=== PATIENT | male | born 1945 | race African-American/Black ===

== ENCOUNTER 2016-03-27 00:13 | Inpatient (IN) | payer SELFPAY ==
[~2016-03-27] VITALS: Ht 180.3 cm; Wt 93.2 kg
[2016-03-27 01:12] LABS: Basophils # (auto) 0.2 uL; Basophils % (auto) 1.3 % (0.0-2.0); DEFINITIVE VIEW TRANSMISSION; Eosinophils # (auto) 0 uL; Hemoglobin 16.3 g/dL (13.5-17.5); Lymphocytes % (auto) 8.2 % (10.0-50.0); Mean Corpuscular Hemoglobin 30.5 pg (28.0-32.0); Mean Corpuscular Hgb Conc. 31.3 g/dL (32.0-36.0); Mean Corpuscular Volume 97.5 fL (80.0-100.0); Mean Platelet Volume 11.8 fL (7.4-10.4); Monocytes # (auto) 0.3 uL; Monocytes % (auto) 2.7 % (0.0-12.0); Neutrophils # (auto) 10.6 uL; Neutrophils % (auto) 87.8 % (37.0-80.0); Platelet Count (auto) 190 10^3/uL (140-450); Red Cell Distribution Width 13.4 % (11.6-16.0); White Blood Cell 12.1 10^3/uL (4.4-10.8)
[2016-03-27 01:27] LABS: INR 1.04 (0.9-1.15); Partial Thromboplastin Time 23.1 sec (22.64-33.71); Prothrombin Time 10.7 sec (9.37-12.3)
[2016-03-27 01:31] LABS: Albumin 4.2 g/dL (3.4-5.0); Calcium 10.9 mg/dL (8.5-10.1)
[2016-03-27 01:34] LABS: BUN/Creatinine Ratio 21.6; Total Protein 8.6 g/dL (6.4-8.2)
[2016-03-27] MEDS ORDERED: InsuLIN R (HUMAN) 100 UNITS in SODIUM CHL 0.9% 99 ML IV SCH ×2 (01:41→05:21)
[2016-03-27] MEDS ORDERED: DEXTROSE (50%) 50ML SYRG IV PRN ×2 (01:45→22:30)
[2016-03-27] MEDS ORDERED: SODIUM BICARBONATE 8.4% INJ 50ML SYRINGE IV ONE (01:45)
[2016-03-27] MEDS ORDERED: SODIUM CHLORIDE 0.9% 1,000 ML IV ONE (01:45)
[2016-03-27] MEDS ORDERED: ALBUTEROL SULF 2.5 MG/0.5ML(0.5%) NEB SOLN NEB ONE (01:45)
[2016-03-27] MEDS ORDERED: ONDANSETRON HCL 4 MG/2 ML VIAL IV ONE (02:30)
[2016-03-27] MEDS ORDERED: MORPHINE SULFATE 4 MG/ML SYRG IV ONE (02:30)
[2016-03-27 02:39] LABS: Urine Bilirubin Negative (Negative); Urine Blood TRACE /uL (Negative); Urine Color Yellow (Yellow); Urine Granular Cast FEW /lpf (0); Urine Hyaline Cast FEW /lpf (0 - 2); Urine Nitrite Negative (Negative); Urine RBC 1 /hpf (0 - 3); Urine Urobilinogen Normal (Negative)
[2016-03-27 02:41] LABS: Urine Glucose 4+ mg/dL (Normal); Urine Ketone 1+ (Negative)
[2016-03-27] MEDS: ACCU-CHEK COMFORT CURVE STRIP VI SCH ×21 (02:44→22:07)
[2016-03-27] MEDS: SODIUM CHLORIDE 0.9% 1,000 ML IV SCH ×4 (03:10→14:21)
[2016-03-27 03:29] LABS: BUN/Creatinine Ratio 24.9; Potassium 5.1 mmol/L (3.5-5.1)
[2016-03-27] MEDS ORDERED: MORPHINE SULF INJ 2 MG/ML SYRINGE 1ML IV PRN (05:30)
[2016-03-27] MEDS ORDERED: ACETAMINOPHEN 325 MG TAB PO PRN (05:30)
[2016-03-27] MEDS ORDERED: HYDROcodone-ACET 5/325MG TAB PO PRN (05:30)
[2016-03-27] MEDS ORDERED: ONDANSETRON HCL 4 MG/2 ML VIAL IV PRN (05:30)
[2016-03-27] MEDS ORDERED: cloNIDine HCL 0.1 MG TAB PO PRN (05:30)
[2016-03-27] MEDS ORDERED: NITROGLYCERIN 0.4 MG SL TAB SL PRN (05:30)
[2016-03-27] MEDS ORDERED: SODIUM CHLORIDE 0.9% 1,000 ML IV SCH (05:41)
[2016-03-27 07:49] LABS: BUN/Creatinine Ratio 25.5; Calcium 9.6 mg/dL (8.5-10.1); Potassium 5.4 mmol/L (3.5-5.1)
[2016-03-27] MEDS: ENOXAPARIN SOD 30 MG/0.3 ML SYRINGE SC SCH (10:20)
[2016-03-27] MEDS: FAMOTIDINE 20 MG TAB PO SCH ×2 (10:20→22:07)
[2016-03-27 15:16] LABS: BUN/Creatinine Ratio 25.8; Calcium 9.5 mg/dL (8.5-10.1); Potassium 4.3 mmol/L (3.5-5.1)
[2016-03-27 18:20] LABS: BUN/Creatinine Ratio 26.7; Calcium 8.8 mg/dL (8.5-10.1); Potassium 4.3 mmol/L (3.5-5.1)
[2016-03-27 20:07] LABS: BUN/Creatinine Ratio 26.7; Potassium 4.2 mmol/L (3.5-5.1)
[2016-03-27] MEDS: SOD CHL 0.45% 1,000 ML IV SCH (20:34)
[2016-03-28] MEDS: InsuLIN REG 1unit/0.01ml Soln (100units/ml) SC SCH ×6 (00:12→20:35)
[2016-03-28] MEDS: ACCU-CHEK COMFORT CURVE STRIP VI SCH ×6 (00:13→20:35)
[2016-03-28 05:28] LABS: Basophils # (auto) 0 uL; Eosinophils # (auto) 0.1 uL; Eosinophils % (auto) 0.6 % (0.0-7.0); Hematocrit 45.7 % (41.0-53.0); Hemoglobin 14.8 g/dL (13.5-17.5); Lymphocytes # (auto) 1.5 uL; Lymphocytes % (auto) 12.3 % (10.0-50.0); Mean Corpuscular Hemoglobin 30.8 pg (28.0-32.0); Mean Corpuscular Hgb Conc. 32.3 g/dL (32.0-36.0); Mean Corpuscular Volume 95.4 fL (80.0-100.0); Mean Platelet Volume 11.4 fL (7.4-10.4); Monocytes # (auto) 0.7 uL; Monocytes % (auto) 5.6 % (0.0-12.0); Neutrophils # (auto) 10.2 uL; Neutrophils % (auto) 81.5 % (37.0-80.0); Platelet Count (auto) 140 10^3/uL (140-450); Red Cell Distribution Width 14.6 % (11.6-16.0); White Blood Cell 12.5 10^3/uL (4.4-10.8)
[2016-03-28] MEDS: SOD CHL 0.45% 1,000 ML IV SCH (06:11)
[2016-03-28 06:14] LABS: Albumin 3.1 g/dL (3.4-5.0); Magnesium 2.9 mg/dL (1.6-2.6); Potassium 5.1 mmol/L (3.5-5.1)
[2016-03-28 06:16] LABS: BUN/Creatinine Ratio 28.2
[2016-03-28 06:19] LABS: Bilirubin, Total 0.9 mg/dL (0.2-1.0); Total Protein 6.8 g/dL (6.4-8.2)
[2016-03-28 09:00] VITALS: BP 144/88
[2016-03-28] MEDS: FAMOTIDINE 20 MG TAB PO SCH ×2 (09:46→22:54)
[2016-03-28] MEDS: ENOXAPARIN SOD 30 MG/0.3 ML SYRINGE SC SCH (09:46)
[2016-03-28 10:26] LABS: Urine Bilirubin Negative (Negative); Urine Blood 3+ /uL (Negative); Urine Color Yellow (Yellow); Urine Glucose 3+ mg/dL (Normal); Urine Ketone 1+ (Negative); Urine Nitrite Negative (Negative); Urine RBC 68 /hpf (0 - 3); Urine Squamous Epithelial Cell FEW /hpf (<5); Urine Urobilinogen Normal (Negative); Urine pH 5.5 (5.0-8.0)
[2016-03-28 11:22] LABS: INR 0.99 (0.9-1.15); Prothrombin Time 10.2 sec (9.37-12.3)
[2016-03-28 13:00] VITALS: BP 155/75
[2016-03-28] MEDS ORDERED: INFLUENZA QUAD 2016-2017 0.5 ML SYRG IM ONE (14:45)
[2016-03-28] MEDS ORDERED: PNEUMOCOCCAL VACC POLYS 25 MCG/0.5 ML VIAL IM ONE (14:45)
[2016-03-28] MEDS: D5W 5% 1,000 ML IV SCH (15:00)
[2016-03-28] MEDS ORDERED: INSULIN DETEMIR(LEVEMIR) 1unit/0.01ml Soln (100units/ml) SC ONE (15:00)
[2016-03-28] MEDS ORDERED: POLYETHYLENE GLYCOL 17GM PWDR PO PRN (15:15)
[2016-03-28] MEDS: DOCUSATE SOD 100 MG CAP PO SCH ×2 (16:19→22:54)
[2016-03-28] MEDS: cefTRIAXone 1GM/50ML D5W 50 ML IV SCH (16:24)
[2016-03-28 17:14] VITALS: BP 156/121
[2016-03-28 22:00] VITALS: BP 145/68
[2016-03-28] MEDS: SENNA 8.6 MG TAB PO SCH (22:54)
[2016-03-29] MEDS: ACCU-CHEK COMFORT CURVE STRIP VI SCH ×6 (00:12→20:00)
[2016-03-29] MEDS: InsuLIN REG 1unit/0.01ml Soln (100units/ml) SC SCH ×7 (00:13→23:50)
[2016-03-29 05:30] VITALS: BP 127/70
[2016-03-29 06:17] LABS: Basophils # (auto) 0 uL; Basophils % (auto) 0.5 % (0.0-2.0); Eosinophils # (auto) 0.1 uL; Eosinophils % (auto) 1.5 % (0.0-7.0); Hemoglobin 13.2 g/dL (13.5-17.5); Mean Corpuscular Hemoglobin 30.5 pg (28.0-32.0); Mean Corpuscular Hgb Conc. 32.2 g/dL (32.0-36.0); Mean Corpuscular Volume 94.5 fL (80.0-100.0); Mean Platelet Volume 11.9 fL (7.4-10.4); Monocytes # (auto) 0.7 uL; Neutrophils # (auto) 5.7 uL; Platelet Count (auto) 145 10^3/uL (140-450); Red Cell Distribution Width 14.6 % (11.6-16.0); White Blood Cell 8.5 10^3/uL (4.4-10.8)
[2016-03-29 06:35] LABS: INR 1.01 (0.9-1.15); Prothrombin Time 10.4 sec (9.37-12.3)
[2016-03-29 06:38] LABS: Magnesium 2.7 mg/dL (1.6-2.6)
[2016-03-29 06:40] LABS: BUN/Creatinine Ratio 21.7
[2016-03-29] MEDS: INSULIN DETEMIR(LEVEMIR) 1unit/0.01ml Soln (100units/ml) SC SCH (07:11)
[2016-03-29] MEDS: cefTRIAXone 1GM/50ML D5W 50 ML IV SCH (08:23)
[2016-03-29] MEDS: D5W 5% 1,000 ML IV SCH ×2 (10:59→15:59)
[2016-03-29] MEDS: ENOXAPARIN SOD 30 MG/0.3 ML SYRINGE SC SCH (11:12)
[2016-03-29] MEDS: FAMOTIDINE 20 MG TAB PO SCH ×2 (11:12→22:19)
[2016-03-29] MEDS: DOCUSATE SOD 100 MG CAP PO SCH ×2 (11:12→22:19)
[2016-03-29 11:53] VITALS: BP 152/70
[2016-03-29 16:30] VITALS: BP 153/87
[2016-03-29 21:30] VITALS: BP 141/79
[2016-03-29] MEDS: SENNA 8.6 MG TAB PO SCH (22:19)
[2016-03-30] MEDS: InsuLIN REG 1unit/0.01ml Soln (100units/ml) SC SCH ×3 (04:05→11:38)
[2016-03-30] MEDS: ACCU-CHEK COMFORT CURVE STRIP VI SCH ×4 (04:05→11:32)
[2016-03-30 05:38] VITALS: BP 122/68
[2016-03-30] MEDS: INSULIN DETEMIR(LEVEMIR) 1unit/0.01ml Soln (100units/ml) SC SCH (06:38)
[2016-03-30 08:00] VITALS: BP 130/75
[2016-03-30 08:40] LABS: Basophils # (auto) 0 uL; Basophils % (auto) 0.3 % (0.0-2.0); Eosinophils # (auto) 0.1 uL; Eosinophils % (auto) 1.4 % (0.0-7.0); Hematocrit 39.5 % (41.0-53.0); Hemoglobin 12.6 g/dL (13.5-17.5); Lymphocytes # (auto) 1.8 uL; Lymphocytes % (auto) 24.9 % (10.0-50.0); Mean Corpuscular Hemoglobin 30.3 pg (28.0-32.0); Mean Corpuscular Volume 94.6 fL (80.0-100.0); Mean Platelet Volume 11.8 fL (7.4-10.4); Monocytes # (auto) 0.5 uL; Monocytes % (auto) 7.4 % (0.0-12.0); Neutrophils # (auto) 4.8 uL; Platelet Count (auto) 118 10^3/uL (140-450); Red Cell Distribution Width 13.9 % (11.6-16.0); White Blood Cell 7.3 10^3/uL (4.4-10.8)
[2016-03-30 08:50] LABS: Prothrombin Time 10.3 sec (9.37-12.3)
[2016-03-30 08:57] LABS: BUN/Creatinine Ratio 16.6; Calcium 9.2 mg/dL (8.5-10.1); Magnesium 2.3 mg/dL (1.6-2.6)
[2016-03-30] MEDS: D5W 5% 1,000 ML IV SCH (09:12)
[2016-03-30] MEDS: cefTRIAXone 1GM/50ML D5W 50 ML IV SCH (09:13)
[2016-03-30] MEDS: DOCUSATE SOD 100 MG CAP PO SCH (09:58)
[2016-03-30] MEDS: FAMOTIDINE 20 MG TAB PO SCH (09:58)
[2016-03-30] MEDS: ENOXAPARIN SOD 30 MG/0.3 ML SYRINGE SC SCH (09:58)
[2016-03-30 13:42] VITALS: BP_SYST 143
[2016-03-30 14:15] VITALS: BP 143/74
== END 2016-03-30 15:10 | disposition home or self-care (01) | DRG 637 ==
LOC: ER 00:18 → TELE 00:19 → TELE-WESTW 03-28 08:25
PROVIDERS: ADMIT Internal Medicine; ATTEND Internal Medicine
DX: E13.10 Other specified diabetes mellitus with ketoacidosis without coma (principal); N17.0 Acute kidney failure with tubular necrosis; E87.0 Hyperosmolality and hypernatremia; I10 Essential (primary) hypertension; E86.0 Dehydration; E87.5 Hyperkalemia; E78.5 Hyperlipidemia, unspecified; Z82.49 Family history of ischemic heart disease and other diseases of the circulatory system; Z83.3 Family history of diabetes mellitus; Z23 Encounter for immunization
CPT/HCPCS: 36415; 36600; 74000; 80048; 80053; 81001; 82010; 82570; 82805; 82962; 83036; 83735; 83930; 84100; 84156; 84295; 84300; 84443; 84484; 84550; 85025; 85610; 85730; 87040; 87081; 87086; 93005; 96361; 96374; 96375; J0696; J1815; J2405

== ENCOUNTER 2017-03-05 11:23 | Inpatient (IN) | payer MEDICAID ==
[~2017-03-05] VITALS: Ht 180.3 cm; Wt 76.1 kg
[2017-03-05 12:50] LABS: Basophils # (auto) 0.1 uL; Basophils % (auto) 0.5 % (0.0-2.0); Eosinophils # (auto) 0 uL; Hemoglobin 15.4 g/dL (13.5-17.5); Lymphocytes # (auto) 0.8 uL; Lymphocytes % (auto) 7.1 % (10.0-50.0); Mean Corpuscular Hemoglobin 31.4 pg (28.0-32.0); Mean Corpuscular Hgb Conc. 32.2 g/dL (32.0-36.0); Mean Corpuscular Volume 97.5 fL (80.0-100.0); Mean Platelet Volume 10.4 fL (6.9-10.8); Monocytes # (auto) 0.3 uL; Monocytes % (auto) 2.1 % (0.0-12.0); Neutrophils # (auto) 10.6 uL; Neutrophils % (auto) 90.3 % (37.0-80.0); Platelet Count (auto) 274 10^3/uL (140-450); Red Cell Distribution Width 14.5 % (11.8-14.3); White Blood Cell 11.7 10^3/uL (4.4-10.8)
[2017-03-05 13:05] LABS: Albumin 4.1 g/dL (3.4-5.0); Anion Gap 20 (5-15); Aspartate Aminotransferase 6 U/L (15-37); Blood Urea Nitrogen 66 mg/dL (7-18); Calcium 11.1 mg/dL (8.5-10.1); Carbon Dioxide 17 mmol/L (21-32); Chloride 96 mmol/L (98-107); Sodium 133 mmol/L (136-145)
[2017-03-05 13:07] LABS: GFR African American 26 mL/min; GFR Non-African American 21 mL/min; Total Protein 9.2 g/dL (6.4-8.2)
[2017-03-05 13:08] LABS: Urine Bilirubin Negative (Negative); Urine Blood TRACE /uL (Negative); Urine Color Yellow (Yellow); Urine Glucose 4+ mg/dL (Normal); Urine Ketone 1+ (Negative); Urine Nitrite Negative (Negative); Urine RBC 38 /hpf (0 - 3); Urine Squamous Epithelial Cell FEW /hpf (<5); Urine Urobilinogen Normal (Negative)
[2017-03-05 13:14] LABS: Alkaline Phosphatase 187 U/L (45-117)
[2017-03-05 13:19] LABS: Glucose 699 mg/dL (74-106)
[2017-03-05 13:20] LABS: BUN/Creatinine Ratio 21.2; Potassium 5.8 mmol/L (3.5-5.1)
[2017-03-05] MEDS ORDERED: SODIUM CHLORIDE 0.9% 500 ML IV ONE (13:30)
[2017-03-05] MEDS ORDERED: InsuLIN REG 1unit/0.01ml Soln (100units/ml) IV ONE (13:30)
[2017-03-05] MEDS ORDERED: SODIUM BICARBONATE 8.4 % INJ 50ML VIAL IV ONE (13:30)
[2017-03-05] MEDS ORDERED: CALCIUM GLUC 4.65meq/50ml D5AE 50 ML IV ONE (13:30)
[2017-03-05] MEDS ORDERED: DEXTROSE (50%) 50ML SYRG IV PRN (14:30)
[2017-03-05] MEDS ORDERED: NITROGLYCERIN 0.4 MG SL TAB SL PRN (14:30)
[2017-03-05] MEDS ORDERED: MORPHINE SULF INJ 2 MG/ML SYRINGE 1ML IV PRN (14:30)
[2017-03-05] MEDS ORDERED: cefTRIAXone 1GM/10ml IVPUSH 10 ML IV ONE (14:30)
[2017-03-05] MEDS ORDERED: METOPROLOL TARTRATE 50 MG TAB PO ONE (14:45)
[2017-03-05] MEDS ORDERED: ASPirin 81 mg TAB PO ONE (14:45)
[2017-03-05] MEDS ORDERED: PANTOPRAZOLE 40 MG TAB PO ONE (14:45)
[2017-03-05] MEDS: SODIUM CHLORIDE 0.9% 1,000 ML IV SCH (15:11)
[2017-03-05 15:57] LABS: B-Type Natriuretic Peptide 2.93 pg/mL (0-100)
[2017-03-05 17:03] LABS: Temperature: 23.1 C (20.0-25.0)
[2017-03-05] MEDS: ACCU-CHEK COMFORT CURVE STRIP VI SCH ×2 (17:21→21:35)
[2017-03-05] MEDS: InsuLIN REG 1unit/0.01ml Soln (100units/ml) SC SCH ×2 (17:34→21:57)
[2017-03-05 18:42] LABS: Calcium 10.2 mg/dL (8.5-10.1); Potassium 5.2 mmol/L (3.5-5.1)
[2017-03-05 20:58] LABS: Allen Test Modified; Base Excess -1.6 mmol/L (-2.0-2.0); Blood COHb 0.1 % (0.5-1.5); Blood MetHb 0.3 % (0.0-1.5); HCO3 22.5 mmol/L (22-26.0); MODE ROOM AIR; O2Hb 95.6 % (94.0-97.0); PCO2 36.6 mmHg (35.0-45.0); PCO2(T) 36.6 mmHg (35.0-45.0); PO2 86.9 mmHg (80.0-100.0); PO2(T) 86.9 mmHg (80.0-100.0); Room 0220T; Sample Type Arterial; pH 7.407 (7.350-7.450)
[2017-03-05] MEDS: METOPROLOL TARTRATE 50 MG TAB PO SCH (21:34)
[2017-03-05] MEDS: ATORVASTATIN 20 MG TAB PO SCH (21:57)
[2017-03-05] MEDS: INSULIN DETEMIR(LEVEMIR) 1unit/0.01ml Soln (100units/ml) SC SCH (21:58)
[2017-03-05] MEDS ORDERED: SENN1TAB14 PO (22:46)
[2017-03-05] MEDS ORDERED: METF-370 PO (22:46)
[2017-03-05] MEDS ORDERED: IBUP800T24 PO (22:46)
[2017-03-05] MEDS ORDERED: LEVEMIR SC (22:46)
[2017-03-05] MEDS ORDERED: LISI-646 PO (22:46)
[2017-03-05 23:26] VITALS: BP 121/75
[2017-03-06] VITALS (7 sets, daily range): BP systolic 113–140; BP diastolic 71–82
[2017-03-06] MEDS: SODIUM CHLORIDE 0.9% 1,000 ML IV SCH ×3 (01:30→20:30)
[2017-03-06 05:57] LABS: Basophils # (auto) 0.1 uL; Basophils % (auto) 0.5 % (0.0-2.0); Eosinophils # (auto) 0 uL; Eosinophils % (auto) 0.3 % (0.0-7.0); Hematocrit 45.9 % (41.0-53.0); Hemoglobin 15.1 g/dL (13.5-17.5); Lymphocytes # (auto) 1.9 uL; Lymphocytes % (auto) 13.1 % (10.0-50.0); Mean Corpuscular Hemoglobin 30.4 pg (28.0-32.0); Mean Corpuscular Hgb Conc. 32.8 g/dL (32.0-36.0); Mean Corpuscular Volume 92.6 fL (80.0-100.0); Mean Platelet Volume 10.8 fL (6.9-10.8); Monocytes # (auto) 1.5 uL; Monocytes % (auto) 10.3 % (0.0-12.0); Neutrophils % (auto) 75.8 % (37.0-80.0); Platelet Count (auto) 208 10^3/uL (140-450); White Blood Cell 14.5 10^3/uL (4.4-10.8)
[2017-03-06] MEDS: ACCU-CHEK COMFORT CURVE STRIP VI SCH ×4 (05:59→21:58)
[2017-03-06] MEDS: InsuLIN REG 1unit/0.01ml Soln (100units/ml) SC SCH ×4 (05:59→21:58)
[2017-03-06 06:20] LABS: BUN/Creatinine Ratio 29.3; Calcium 10.4 mg/dL (8.5-10.1); Potassium 4.3 mmol/L (3.5-5.1)
[2017-03-06] MEDS: INSULIN DETEMIR(LEVEMIR) 1unit/0.01ml Soln (100units/ml) SC SCH ×2 (10:00→21:59)
[2017-03-06] MEDS: METOPROLOL TARTRATE 50 MG TAB PO SCH ×2 (10:28→22:00)
[2017-03-06] MEDS: cefTRIAXone 1GM/10ml IVPUSH 10 ML IV SCH (10:28)
[2017-03-06] MEDS: ASPirin 81 mg TAB PO SCH (10:28)
[2017-03-06] MEDS: PANTOPRAZOLE 40 MG TAB PO SCH (10:28)
[2017-03-06] MEDS: ATORVASTATIN 20 MG TAB PO SCH (21:58)
[2017-03-07 05:54] VITALS: BP 131/72
[2017-03-07] MEDS: SODIUM CHLORIDE 0.9% 1,000 ML IV SCH ×2 (06:30→16:30)
[2017-03-07] MEDS: InsuLIN REG 1unit/0.01ml Soln (100units/ml) SC SCH ×4 (07:00→21:38)
[2017-03-07] MEDS: ACCU-CHEK COMFORT CURVE STRIP VI SCH ×4 (07:07→21:38)
[2017-03-07 08:30] VITALS: BP 133/75
[2017-03-07] MEDS: cefTRIAXone 1GM/10ml IVPUSH 10 ML IV SCH (09:00)
[2017-03-07] MEDS: INSULIN DETEMIR(LEVEMIR) 1unit/0.01ml Soln (100units/ml) SC SCH ×2 (10:00→21:39)
[2017-03-07] MEDS: ASPirin 81 mg TAB PO SCH (10:00)
[2017-03-07] MEDS: PANTOPRAZOLE 40 MG TAB PO SCH (12:25)
[2017-03-07] MEDS: METOPROLOL TARTRATE 50 MG TAB PO SCH ×2 (12:25→21:38)
[2017-03-07 12:30] VITALS: BP 142/84
[2017-03-07 17:22] VITALS: BP 143/91
[2017-03-07 20:00] VITALS: BP 132/75
[2017-03-07] MEDS: ATORVASTATIN 20 MG TAB PO SCH (21:37)
[2017-03-07 22:15] VITALS: BP 132/75
[2017-03-08] MEDS ORDERED: HYDROcodone-ACET 5/325MG TAB PO ONE (01:00)
[2017-03-08] MEDS ORDERED: ONDANSETRON HCL 4 MG/2 ML VIAL IV PRN (01:00)
[2017-03-08] MEDS: SODIUM CHLORIDE 0.9% 1,000 ML IV SCH ×3 (02:15→22:37)
[2017-03-08 04:51] VITALS: BP 106/63
[2017-03-08] MEDS: InsuLIN REG 1unit/0.01ml Soln (100units/ml) SC SCH ×4 (07:00→22:24)
[2017-03-08] MEDS: ACCU-CHEK COMFORT CURVE STRIP VI SCH ×4 (07:09→22:23)
[2017-03-08 09:00] VITALS: BP 130/75
[2017-03-08] MEDS: ASPirin 81 mg TAB PO SCH (09:33)
[2017-03-08] MEDS: cefTRIAXone 1GM/10ml IVPUSH 10 ML IV SCH (09:33)
[2017-03-08] MEDS: INSULIN DETEMIR(LEVEMIR) 1unit/0.01ml Soln (100units/ml) SC SCH ×2 (09:33→22:23)
[2017-03-08] MEDS: PANTOPRAZOLE 40 MG TAB PO SCH (09:33)
[2017-03-08] MEDS: METOPROLOL TARTRATE 50 MG TAB PO SCH ×2 (09:33→22:00)
[2017-03-08 13:00] VITALS: BP 132/80
[2017-03-08 17:13] VITALS: BP 137/85
[2017-03-08 22:00] VITALS: BP 134/73
[2017-03-08] MEDS: ATORVASTATIN 20 MG TAB PO SCH (22:23)
[2017-03-09 06:02] VITALS: BP 125/61
[2017-03-09] MEDS: ACCU-CHEK COMFORT CURVE STRIP VI SCH ×2 (06:45→12:09)
[2017-03-09] MEDS: InsuLIN REG 1unit/0.01ml Soln (100units/ml) SC SCH ×2 (06:54→12:09)
[2017-03-09] MEDS: SODIUM CHLORIDE 0.9% 1,000 ML IV SCH (06:54)
[2017-03-09 09:00] VITALS: BP 145/83
[2017-03-09] MEDS: PANTOPRAZOLE 40 MG TAB PO SCH (09:47)
[2017-03-09] MEDS: ASPirin 81 mg TAB PO SCH (09:48)
[2017-03-09] MEDS: METOPROLOL TARTRATE 50 MG TAB PO SCH (09:49)
[2017-03-09] MEDS: INSULIN DETEMIR(LEVEMIR) 1unit/0.01ml Soln (100units/ml) SC SCH (09:50)
[2017-03-09] MEDS: cefTRIAXone 1GM/10ml IVPUSH 10 ML IV SCH (09:52)
[2017-03-09 13:00] VITALS: BP 150/70
[2017-03-09 14:38] VITALS: BP 145/83
== END 2017-03-09 16:00 | disposition home or self-care (01) | DRG 682 ==
LOC: ER 11:23 → TELE 11:24 → TELE-CENTR 19:50
PROVIDERS: ADMIT Internal Medicine; ATTEND Internal Medicine
DX: N17.0 Acute kidney failure with tubular necrosis (principal); E11.10 Type 2 diabetes mellitus with ketoacidosis without coma; E11.00 Type 2 diabetes mellitus with hyperosmolarity without nonketotic hyperglycemic-hyperosmolar coma (NKHHC); E87.5 Hyperkalemia; E11.22 Type 2 diabetes mellitus with diabetic chronic kidney disease; N39.0 Urinary tract infection, site not specified; E78.5 Hyperlipidemia, unspecified; I12.9 Hypertensive chronic kidney disease with stage 1 through stage 4 chronic kidney disease, or unspecified chronic kidney disease; D72.829 Elevated white blood cell count, unspecified; N18.9 Chronic kidney disease, unspecified; Z79.4 Long term (current) use of insulin; Z79.82 Long term (current) use of aspirin; Z80.0 Family history of malignant neoplasm of digestive organs; Z82.49 Family history of ischemic heart disease and other diseases of the circulatory system; Z83.3 Family history of diabetes mellitus; Z91.14 Patient's other noncompliance with medication regimen; Z87.891 Personal history of nicotine dependence
CPT/HCPCS: 36415; 36600; 71020; 76775; 80048; 80053; 81001; 82010; 82570; 82805; 82962; 83036; 83880; 84156; 84484; 85025; 87086; 93005; 93306; 94761; 96365; 96375; J0610; J1815

== ENCOUNTER 2017-08-14 12:43 | Emergency (ER) | payer MEDICAID ==
[~2017-08-14] VITALS: Ht 182.9 cm; Wt 63.5 kg
[~2017-08-14 12:43] MED LIST: IBUP800T24 PO; LEVEMIR SC; LISI-646 PO; METF-370 PO; SENN1TAB14 PO
[2017-08-14 13:30] LABS: Basophils # (auto) 0.1 uL; Basophils % (auto) 0.9 % (0.0-2.0); Eosinophils # (auto) 0.1 uL; Eosinophils % (auto) 1.3 % (0.0-7.0); Hemoglobin 13.6 g/dL (13.5-17.5); Lymphocytes # (auto) 2.3 uL; Lymphocytes % (auto) 32.2 % (10.0-50.0); Mean Corpuscular Hemoglobin 30.6 pg (28.0-32.0); Mean Corpuscular Hgb Conc. 33.2 g/dL (32.0-36.0); Mean Corpuscular Volume 92.1 fL (80.0-100.0); Monocytes # (auto) 0.5 uL; Monocytes % (auto) 7.8 % (0.0-12.0); Neutrophils % (auto) 57.8 % (37.0-80.0); Platelet Count (auto) 210 10^3/uL (140-450); Red Blood Cells 4.45 10^6/uL (4.5-5.90); Red Cell Distribution Width 13.5 % (11.8-14.3)
[2017-08-14] MEDS ORDERED: SODIUM CHLORIDE 0.9% 1,000 ML IV ONE (13:47)
[2017-08-14 13:54] LABS: Albumin 3.6 g/dL (3.4-5.0); BUN/Creatinine Ratio 9.3; Calcium 9.7 mg/dL (8.5-10.1); Total Protein 7.9 g/dL (6.4-8.2)
[2017-08-14] MEDS ORDERED: METOCLOPRAMIDE HCL 5MG/ml INJ 2ml VIAL IV ONE (14:00)
[2017-08-14] MEDS ORDERED: NALBUPHINE HCL 10 MG/1ml INJECTION IV ONE (14:00)
[2017-08-14 15:42] VITALS: BP 158/85
[2017-08-30] MEDS ORDERED: KEP500T PO (10:12)
[2017-08-30] MEDS ORDERED: ATOR20TA50 PO (10:12)
[2017-08-30] MEDS ORDERED: ASP81EC PO (10:12)
[2017-08-30] MEDS ORDERED: LISI-646 PO (10:12)
[2017-08-30] MEDS ORDERED: CAR3125T PO (10:12)
[2017-08-30] MEDS ORDERED: PHE100C PO (10:12)
== END 2017-08-14 17:01 | disposition home or self-care (01) ==
LOC: ER 12:43
DX: G43.909 Migraine, unspecified, not intractable, without status migrainosus (principal); E11.21 Type 2 diabetes mellitus with diabetic nephropathy; I10 Essential (primary) hypertension; N39.0 Urinary tract infection, site not specified; N40.0 Benign prostatic hyperplasia without lower urinary tract symptoms; E78.5 Hyperlipidemia, unspecified
CPT/HCPCS: 36415; 70450; 71046; 80053; 82962; 83735; 84443; 85025; 93005; 94761; 96374; 96375; 99285; J2300; J2765

== ENCOUNTER 2017-08-22 11:30 | Inpatient (IN) | payer MEDICAID ==
[~2017-08-22] VITALS: Ht 195.6 cm; Wt 77.7 kg
[2017-08-22] MEDS ORDERED: SODIUM CHLORIDE 0.9% 500 ML IVB ONE (11:52)
[2017-08-22 12:49] LABS: Basophils # (auto) 0.1 uL; Basophils % (auto) 0.8 % (0.0-2.0); Eosinophils # (auto) 0 uL; Eosinophils % (auto) 0.2 % (0.0-7.0); Hematocrit 40.9 % (41.0-53.0); Hemoglobin 13.5 g/dL (13.5-17.5); Lymphocytes # (auto) 1.1 uL; Lymphocytes % (auto) 10.9 % (10.0-50.0); Mean Corpuscular Hemoglobin 30.9 pg (28.0-32.0); Mean Corpuscular Hgb Conc. 33.1 g/dL (32.0-36.0); Mean Corpuscular Volume 93.1 fL (80.0-100.0); Monocytes # (auto) 0.5 uL; Monocytes % (auto) 4.7 % (0.0-12.0); Neutrophils # (auto) 8.6 uL; Neutrophils % (auto) 83.4 % (37.0-80.0); Platelet Count (auto) 211 10^3/uL (140-450); Red Blood Cells 4.39 10^6/uL (4.5-5.90); Red Cell Distribution Width 14.2 % (11.8-14.3); White Blood Cell 10.3 10^3/uL (4.4-10.8)
[2017-08-22 13:04] LABS: INR 1.15 (0.9-1.15); Prothrombin Time 12.2 sec (9.27-12.13)
[2017-08-22 13:09] LABS: Alanine Aminotransferase 17 U/L (16-61); Albumin 3.4 g/dL (3.4-5.0); Anion Gap 17 (5-15); Aspartate Aminotransferase 14 U/L (15-37); BUN/Creatinine Ratio 6.7; Blood Alcohol < 3.0 mg/dL (0-5); Blood Urea Nitrogen 12 mg/dL (7-18); Carbon Dioxide 17 mmol/L (21-32); Chloride 107 mmol/L (98-107); GFR African American 48 mL/min; GFR Non-African American 40 mL/min; Glucose 209 mg/dL (74-106); Magnesium 2.5 mg/dL (1.6-2.6); Potassium 4.1 mmol/L (3.5-5.1); Sodium 141 mmol/L (136-145)
[2017-08-22 13:16] LABS: Alkaline Phosphatase 115 U/L (45-117); Bilirubin, Total 0.8 mg/dL (0.2-1.0)
[2017-08-22] MEDS ORDERED: PROMETHAZINE HCL 25 MG/ML 1ML IV PRN (13:45)
[2017-08-22] MEDS ORDERED: LORazepam 0.5 MG TAB PO PRN (13:45)
[2017-08-22] MEDS ORDERED: LACTULOSE 20Gm/30ML SOLN PO PRN (13:45)
[2017-08-22] MEDS ORDERED: HYDROcodone-ACET 5/325MG TAB PO PRN (13:45)
[2017-08-22] MEDS ORDERED: DEXTROSE (50%) 50ML SYRG IV PRN (13:45)
[2017-08-22] MEDS ORDERED: LABETALOL HCL 5 MG/ML ML 20ML VIAL IV PRN (13:45)
[2017-08-22] MEDS ORDERED: TEMAZEPAM 15 MG CAP PO PRN (13:45)
[2017-08-22] MEDS ORDERED: PANTOPRAZOLE 40 MG/10 ML VIAL IV ONE (13:45)
[2017-08-22] MEDS ORDERED: NITROGLYCERIN 0.4 MG SL TAB SL PRN (13:45)
[2017-08-22] MEDS ORDERED: MORPHINE SULFATE 10 MG/ML INJ 1ML SDV IV PRN ×2 (13:45)
[2017-08-22] MEDS ORDERED: ENOXAPARIN SOD 40 MG/0.4 ML SYRINGE SC SCH (13:53)
[2017-08-22] MEDS ORDERED: ASPirin 81 mg TAB PO ONE (14:00)
[2017-08-22 14:12] LABS: Cholesterol 181 mg/dL (< 200); Creatine Kinase IFCC 126 U/L (39-308); Folate (Folic Acid) 16.95 ng/mL (5.38-24); HDL Cholesterol 93 mg/dL (40-59); LDL Cholesterol 78 mg/dL (< 100); Triglycerides 68 mg/dL (< 150)
[2017-08-22] MEDS: ACCU-CHEK COMFORT CURVE STRIP VI SCH ×2 (16:00→22:16)
[2017-08-22] MEDS ORDERED: LORazepam 2MG/ML-1ML VIAL IV PRN (16:00)
[2017-08-22] MEDS: InsuLIN REG 1unit/0.01ml Soln (100units/ml) SC SCH ×2 (17:39→20:00)
[2017-08-22 18:11] VITALS: BP 111/70
[2017-08-22] MEDS ORDERED: CYCL1TAB18 PO (18:51)
[2017-08-22] MEDS ORDERED: CIPR-217 PO (18:53)
[2017-08-22] MEDS ORDERED: TAMS0.4C36 PO (18:53)
[2017-08-22] MEDS ORDERED: HYDR-4683 PO (18:53)
[2017-08-22 22:00] VITALS: BP 100/59
[2017-08-22] MEDS ORDERED: ATORVASTATIN 20 MG TAB PO SCH (22:00)
[2017-08-22] MEDS: CARVEDILOL 3.125 MG TAB PO SCH (22:00)
[2017-08-22] MEDS: ATORVASTATIN 20 MG TAB PO SCH (22:18)
[2017-08-23] MEDS: ACCU-CHEK COMFORT CURVE STRIP VI SCH ×7 (04:00→23:52)
[2017-08-23] MEDS: InsuLIN REG 1unit/0.01ml Soln (100units/ml) SC SCH ×7 (04:00→23:52)
[2017-08-23 05:00] VITALS: BP 101/61
[2017-08-23 06:06] LABS: Basophils # (auto) 0.1 uL; Basophils % (auto) 0.5 % (0.0-2.0); Eosinophils # (auto) 0 uL; Eosinophils % (auto) 0.2 % (0.0-7.0); Hematocrit 34.9 % (41.0-53.0); Hemoglobin 11.8 g/dL (13.5-17.5); Lymphocytes # (auto) 1.3 uL; Lymphocytes % (auto) 12.5 % (10.0-50.0); Mean Corpuscular Hemoglobin 31.4 pg (28.0-32.0); Mean Corpuscular Hgb Conc. 33.8 g/dL (32.0-36.0); Mean Corpuscular Volume 92.9 fL (80.0-100.0); Monocytes # (auto) 0.8 uL; Monocytes % (auto) 7.4 % (0.0-12.0); Neutrophils # (auto) 8.1 uL; Neutrophils % (auto) 79.4 % (37.0-80.0); Platelet Count (auto) 191 10^3/uL (140-450); Red Blood Cells 3.76 10^6/uL (4.5-5.90); Red Cell Distribution Width 14.2 % (11.8-14.3); White Blood Cell 10.2 10^3/uL (4.4-10.8)
[2017-08-23 06:32] LABS: BUN/Creatinine Ratio 8.6; Calcium 9.5 mg/dL (8.5-10.1)
[2017-08-23 06:35] LABS: Total Protein 6.8 g/dL (6.4-8.2)
[2017-08-23] MEDS ORDERED: ENOXAPARIN SOD 80 MG/0.8ML SYRINGE SC ONE (07:30)
[2017-08-23 09:00] VITALS: BP 114/72
[2017-08-23] MEDS ORDERED: ASPirin 81 mg TAB PO SCH ×2 (10:00)
[2017-08-23] MEDS: PANTOPRAZOLE 40 MG/10 ML VIAL IV SCH (10:24)
[2017-08-23] MEDS: CARVEDILOL 3.125 MG TAB PO SCH (10:25)
[2017-08-23] MEDS ORDERED: IODIXANOL 320MG/ML 100ML BTL IV ONE ×3 (12:18→20:46)
[2017-08-23] MEDS ORDERED: LIDOCAINE 2%HCL (LOCAL ANESTH.) INJ 20ML MDV ONE (12:18)
[2017-08-23] MEDS ORDERED: fentaNYL CITRATE 100 MCG/2 ML VL ONE (12:42)
[2017-08-23] MEDS ORDERED: ANGIOMAX 250 MG VIAL IV ONE (12:42)
[2017-08-23] MEDS ORDERED: MIDAZOLAM HCL 1MG/1ML-2 ML VIAL ONE (12:42)
[2017-08-23] MEDS ORDERED: SODIUM CHL 0.9% 0 ML ONE (12:42)
[2017-08-23 13:00] VITALS: BP 118/79
[2017-08-23 17:00] VITALS: BP 120/76
[2017-08-23] MEDS ORDERED: LEVETIRACETAM INJ 1,000 MG in D5W 5% 100 ML IV ONE (20:30)
[2017-08-23] MEDS: SODIUM CHLORIDE 0.9% 1,000 ML IV SCH (20:30)
[2017-08-23 22:00] VITALS: BP 111/60
[2017-08-24] MEDS: CARVEDILOL 3.125 MG TAB PO SCH ×3 (00:04→21:40)
[2017-08-24] MEDS: LEVETIRACETAM 500 MG TAB PO SCH ×3 (00:05→21:40)
[2017-08-24] MEDS: ATORVASTATIN 20 MG TAB PO SCH ×2 (00:05→21:40)
[2017-08-24] MEDS: LISINOPRIL 5 MG TAB PO SCH ×3 (00:05→23:26)
[2017-08-24] MEDS: InsuLIN REG 1unit/0.01ml Soln (100units/ml) SC SCH ×6 (04:00→23:26)
[2017-08-24 05:00] VITALS: BP 110/68
[2017-08-24 06:10] LABS: Basophils # (auto) 0.1 uL; Basophils % (auto) 1.3 % (0.0-2.0); Eosinophils # (auto) 0.2 uL; Hematocrit 38.9 % (41.0-53.0); Hemoglobin 13.1 g/dL (13.5-17.5); Lymphocytes # (auto) 2.3 uL; Lymphocytes % (auto) 29.9 % (10.0-50.0); Mean Corpuscular Hemoglobin 31.4 pg (28.0-32.0); Mean Corpuscular Hgb Conc. 33.7 g/dL (32.0-36.0); Mean Corpuscular Volume 93.4 fL (80.0-100.0); Monocytes # (auto) 0.8 uL; Monocytes % (auto) 11.2 % (0.0-12.0); Neutrophils # (auto) 4.2 uL; Neutrophils % (auto) 55.6 % (37.0-80.0); Platelet Count (auto) 179 10^3/uL (140-450); Red Blood Cells 4.17 10^6/uL (4.5-5.90); Red Cell Distribution Width 14.6 % (11.8-14.3); White Blood Cell 7.5 10^3/uL (4.4-10.8)
[2017-08-24] MEDS: ACCU-CHEK COMFORT CURVE STRIP VI SCH ×6 (06:19→23:26)
[2017-08-24 06:43] LABS: BUN/Creatinine Ratio 12.2; Calcium 9.3 mg/dL (8.5-10.1); Magnesium 2.4 mg/dL (1.6-2.6); Potassium 3.8 mmol/L (3.5-5.1)
[2017-08-24 07:28] LABS: Urine Bacteria NONE SEEN /hpf (None Seen); Urine Blood Negative /uL (Negative); Urine Mucus FEW (None Seen); Urine Specific Gravity 1.037 (1.001-1.035); Urine WBC 16 /hpf (0 - 3)
[2017-08-24 07:33] LABS: Alcohol, Urine < 3.0 mg/dL (0-5); Amphetamine Screen, Urine NEGATIVE (NEGATIVE); Barbiturate Scree,Urine NEGATIVE (NEGATIVE); Benzodiazephine Screen, Urine NEGATIVE (NEGATIVE); Cannabinoid Screen, Urine POSITIVE (NEGATIVE); Cocaine Screen, Urine NEGATIVE (NEGATIVE); Opiate Scree,Urine POSITIVE (NEGATIVE); Phencyclidine Screen, Urine NEGATIVE (NEGATIVE)
[2017-08-24] MEDS: ENOXAPARIN SOD 40 MG/0.4 ML SYRINGE SC SCH (09:32)
[2017-08-24] MEDS: PANTOPRAZOLE 40 MG/10 ML VIAL IV SCH (09:32)
[2017-08-24] MEDS: ASPirin 81 mg TAB PO SCH (09:32)
[2017-08-24] MEDS: SODIUM CHLORIDE 0.9% 1,000 ML IV SCH ×2 (09:34→23:15)
[2017-08-24 13:00] VITALS: BP 115/77
[2017-08-24 17:00] VITALS: BP 124/76
[2017-08-24 22:00] VITALS: BP 100/76
[2017-08-25 00:26] VITALS: BP 116/70
[2017-08-25] MEDS: InsuLIN REG 1unit/0.01ml Soln (100units/ml) SC SCH ×6 (03:30→23:48)
[2017-08-25] MEDS: ACCU-CHEK COMFORT CURVE STRIP VI SCH ×6 (03:30→23:48)
[2017-08-25 04:44] VITALS: BP 129/80
[2017-08-25 06:40] LABS: Basophils # (auto) 0.1 uL; Basophils % (auto) 1.2 % (0.0-2.0); Eosinophils # (auto) 0.1 uL; Eosinophils % (auto) 2.1 % (0.0-7.0); Hematocrit 38.1 % (41.0-53.0); Hemoglobin 12.6 g/dL (13.5-17.5); Lymphocytes # (auto) 1.7 uL; Lymphocytes % (auto) 28.1 % (10.0-50.0); Mean Corpuscular Hemoglobin 30.5 pg (28.0-32.0); Mean Corpuscular Hgb Conc. 32.9 g/dL (32.0-36.0); Mean Corpuscular Volume 92.8 fL (80.0-100.0); Monocytes # (auto) 0.7 uL; Monocytes % (auto) 11.1 % (0.0-12.0); Neutrophils # (auto) 3.4 uL; Neutrophils % (auto) 57.5 % (37.0-80.0); Platelet Count (auto) 188 10^3/uL (140-450); Red Blood Cells 4.11 10^6/uL (4.5-5.90); Red Cell Distribution Width 14.2 % (11.8-14.3); White Blood Cell 5.9 10^3/uL (4.4-10.8)
[2017-08-25 06:57] LABS: Calcium 8.9 mg/dL (8.5-10.1); Potassium 4.3 mmol/L (3.5-5.1)
[2017-08-25 06:59] LABS: BUN/Creatinine Ratio 14.2
[2017-08-25 08:00] VITALS: BP 123/92
[2017-08-25] MEDS: Boost Glucose Control 8 Ounces PO SCH (08:00)
[2017-08-25] MEDS: ENOXAPARIN SOD 40 MG/0.4 ML SYRINGE SC SCH (10:49)
[2017-08-25] MEDS: PANTOPRAZOLE 40 MG/10 ML VIAL IV SCH (10:49)
[2017-08-25] MEDS: LISINOPRIL 5 MG TAB PO SCH ×2 (10:50→21:37)
[2017-08-25] MEDS: ASPirin 81 mg TAB PO SCH (10:50)
[2017-08-25] MEDS: CARVEDILOL 3.125 MG TAB PO SCH ×2 (10:50→21:37)
[2017-08-25] MEDS: LEVETIRACETAM 500 MG TAB PO SCH ×2 (11:13→21:37)
[2017-08-25 12:00] VITALS: BP 139/70
[2017-08-25 15:00] VITALS: BP 128/83
[2017-08-25] MEDS: SODIUM CHLORIDE 0.9% 1,000 ML IV SCH (15:14)
[2017-08-25] MEDS: ATORVASTATIN 20 MG TAB PO SCH (21:38)
[2017-08-25 22:00] VITALS: BP 109/67
[2017-08-26] MEDS: SODIUM CHLORIDE 0.9% 1,000 ML IV SCH (01:59)
[2017-08-26] MEDS: ACCU-CHEK COMFORT CURVE STRIP VI SCH ×6 (03:58→23:44)
[2017-08-26] MEDS: InsuLIN REG 1unit/0.01ml Soln (100units/ml) SC SCH ×6 (03:58→21:45)
[2017-08-26 05:00] VITALS: BP 132/92
[2017-08-26 06:31] LABS: Basophils # (auto) 0.1 uL; Eosinophils # (auto) 0.2 uL; Eosinophils % (auto) 2.8 % (0.0-7.0); Hematocrit 36.4 % (41.0-53.0); Lymphocytes # (auto) 1.8 uL; Mean Corpuscular Hemoglobin 30.7 pg (28.0-32.0); Mean Corpuscular Hgb Conc. 32.8 g/dL (32.0-36.0); Mean Corpuscular Volume 93.6 fL (80.0-100.0); Monocytes # (auto) 0.7 uL; Monocytes % (auto) 12.4 % (0.0-12.0); Neutrophils % (auto) 51.8 % (37.0-80.0); Platelet Count (auto) 184 10^3/uL (140-450); Red Blood Cells 3.89 10^6/uL (4.5-5.90); Red Cell Distribution Width 14.1 % (11.8-14.3); White Blood Cell 5.8 10^3/uL (4.4-10.8)
[2017-08-26 06:47] LABS: Potassium 4.3 mmol/L (3.5-5.1)
[2017-08-26 06:52] LABS: Calcium 8.9 mg/dL (8.5-10.1)
[2017-08-26] MEDS: Boost Glucose Control 8 Ounces PO SCH ×3 (08:00→19:30)
[2017-08-26 08:54] VITALS: BP 125/77
[2017-08-26] MEDS: PANTOPRAZOLE 40 MG/10 ML VIAL IV SCH (10:02)
[2017-08-26] MEDS: LEVETIRACETAM 500 MG TAB PO SCH ×2 (10:04→21:53)
[2017-08-26] MEDS: ASPirin 81 mg TAB PO SCH (10:04)
[2017-08-26] MEDS: CARVEDILOL 3.125 MG TAB PO SCH ×2 (10:04→21:43)
[2017-08-26] MEDS: ENOXAPARIN SOD 40 MG/0.4 ML SYRINGE SC SCH (10:05)
[2017-08-26] MEDS: LISINOPRIL 5 MG TAB PO SCH ×2 (10:12→21:43)
[2017-08-26 13:00] VITALS: BP 117/67
[2017-08-26 17:00] VITALS: BP 116/67
[2017-08-26] MEDS ORDERED: LEVETIRACETAM INJ 1,000 MG in D5W 5% 100 ML IV ONE (19:30)
[2017-08-26] MEDS: ATORVASTATIN 20 MG TAB PO SCH (21:39)
[2017-08-26] MEDS ORDERED: INSULIN LANTUS (GLARGINE) 1 /0.01ml (100units/ml) SC SCH (22:00)
[2017-08-27] MEDS: ACCU-CHEK COMFORT CURVE STRIP VI SCH ×5 (04:16→20:23)
[2017-08-27] MEDS: InsuLIN REG 1unit/0.01ml Soln (100units/ml) SC SCH ×5 (04:16→20:20)
[2017-08-27 04:56] VITALS: BP 117/68
[2017-08-27 05:59] LABS: Basophils # (auto) 0.1 uL; Basophils % (auto) 1.2 % (0.0-2.0); Eosinophils # (auto) 0.2 uL; Eosinophils % (auto) 3.5 % (0.0-7.0); Hematocrit 35.3 % (41.0-53.0); Hemoglobin 11.8 g/dL (13.5-17.5); Lymphocytes # (auto) 1.5 uL; Lymphocytes % (auto) 28.5 % (10.0-50.0); Mean Corpuscular Hgb Conc. 33.4 g/dL (32.0-36.0); Mean Corpuscular Volume 92.9 fL (80.0-100.0); Monocytes # (auto) 0.6 uL; Monocytes % (auto) 11.2 % (0.0-12.0); Neutrophils % (auto) 55.6 % (37.0-80.0); Nucleated Red Blood Cells % 0.1 %; Platelet Count (auto) 185 10^3/uL (140-450); Red Cell Distribution Width 14.3 % (11.8-14.3); White Blood Cell 5.4 10^3/uL (4.4-10.8)
[2017-08-27 06:14] LABS: BUN/Creatinine Ratio 11.4; Calcium 8.8 mg/dL (8.5-10.1); Potassium 3.7 mmol/L (3.5-5.1)
[2017-08-27] MEDS: Boost Glucose Control 8 Ounces PO SCH ×3 (08:15→20:22)
[2017-08-27 09:00] VITALS: BP 129/76
[2017-08-27] MEDS: LEVETIRACETAM 500 MG TAB PO SCH ×2 (09:53→21:12)
[2017-08-27] MEDS: LISINOPRIL 5 MG TAB PO SCH ×2 (09:54→21:21)
[2017-08-27] MEDS: CARVEDILOL 3.125 MG TAB PO SCH ×2 (09:54→21:21)
[2017-08-27] MEDS: PANTOPRAZOLE 40 MG/10 ML VIAL IV SCH (09:54)
[2017-08-27] MEDS: ENOXAPARIN SOD 40 MG/0.4 ML SYRINGE SC SCH (09:54)
[2017-08-27] MEDS: ASPirin 81 mg TAB PO SCH (09:54)
[2017-08-27 13:00] VITALS: BP 126/78
[2017-08-27 15:46] VITALS: BP 147/89
[2017-08-27] MEDS: INSULIN LANTUS (GLARGINE) 1 /0.01ml (100units/ml) SC SCH (21:04)
[2017-08-27] MEDS: ATORVASTATIN 20 MG TAB PO SCH (21:12)
[2017-08-27 22:00] VITALS: BP 122/68
[2017-08-28] MEDS: InsuLIN REG 1unit/0.01ml Soln (100units/ml) SC SCH ×6 (00:17→21:56)
[2017-08-28] MEDS: ACCU-CHEK COMFORT CURVE STRIP VI SCH ×6 (00:18→21:57)
[2017-08-28] MEDS: ACETAMINOPHEN 500 MG TAB PO PRN ×2 (04:15→20:26)
[2017-08-28 05:00] VITALS: BP 147/91
[2017-08-28 06:10] LABS: BUN/Creatinine Ratio 13.3; Potassium 4.1 mmol/L (3.5-5.1)
[2017-08-28] MEDS: Boost Glucose Control 8 Ounces PO SCH ×3 (08:02→18:00)
[2017-08-28 08:08] VITALS: BP 167/80
[2017-08-28 09:53] LABS: Basophils # (auto) 0.1 uL; Eosinophils # (auto) 0.1 uL; Eosinophils % (auto) 2.1 % (0.0-7.0); Hematocrit 40.1 % (41.0-53.0); Hemoglobin 12.8 g/dL (13.5-17.5); Lymphocytes # (auto) 1.5 uL; Lymphocytes % (auto) 24.4 % (10.0-50.0); Mean Corpuscular Hemoglobin 30.2 pg (28.0-32.0); Mean Corpuscular Hgb Conc. 31.9 g/dL (32.0-36.0); Mean Corpuscular Volume 94.9 fL (80.0-100.0); Monocytes # (auto) 0.6 uL; Monocytes % (auto) 9.5 % (0.0-12.0); Neutrophils # (auto) 3.8 uL; Platelet Count (auto) 206 10^3/uL (140-450); Red Blood Cells 4.23 10^6/uL (4.5-5.90); Red Cell Distribution Width 14.7 % (11.8-14.3)
[2017-08-28] MEDS: PANTOPRAZOLE 40 MG/10 ML VIAL IV SCH (10:16)
[2017-08-28] MEDS: LEVETIRACETAM 500 MG TAB PO SCH ×2 (10:17→22:14)
[2017-08-28] MEDS: ENOXAPARIN SOD 40 MG/0.4 ML SYRINGE SC SCH (10:17)
[2017-08-28] MEDS: ASPirin 81 mg TAB PO SCH (10:17)
[2017-08-28] MEDS: CARVEDILOL 3.125 MG TAB PO SCH ×2 (10:18→21:55)
[2017-08-28] MEDS: LISINOPRIL 5 MG TAB PO SCH (10:19)
[2017-08-28 12:13] VITALS: BP 171/97
[2017-08-28] MEDS ORDERED: LISINOPRIL 20 MG TAB PO ONE (13:00)
[2017-08-28] MEDS ORDERED: DEXTROSE (50%) 50ML SYRG IV PRN (13:00)
[2017-08-28 13:14] VITALS: BP 159/75
[2017-08-28] MEDS ORDERED: LEVETIRACETAM INJ 1,000 MG in D5W 5% 100 ML IV ONE (17:45)
[2017-08-28] MEDS ORDERED: PHENYTOIN IV DILANTIN 1,000 MG in SODIUM CHL 0.9% 250 ML IV ONE (18:45)
[2017-08-28] MEDS: PHENYTOIN SODIUM 100 MG CAP PO SCH (21:55)
[2017-08-28] MEDS: ATORVASTATIN 20 MG TAB PO SCH (21:55)
[2017-08-28] MEDS: INSULIN LANTUS (GLARGINE) 1 /0.01ml (100units/ml) SC SCH (21:56)
[2017-08-28 22:00] VITALS: BP 120/74
[2017-08-28] MEDS ORDERED: LEVETIRACETAM 500 MG TAB PO SCH (22:00)
[2017-08-29 05:00] VITALS: BP 116/70
[2017-08-29] MEDS: ACCU-CHEK COMFORT CURVE STRIP VI SCH ×4 (06:04→21:33)
[2017-08-29] MEDS: InsuLIN REG 1unit/0.01ml Soln (100units/ml) SC SCH ×4 (06:04→21:34)
[2017-08-29 07:11] LABS: Basophils # (auto) 0.1 uL; Basophils % (auto) 1.4 % (0.0-2.0); Eosinophils # (auto) 0.2 uL; Eosinophils % (auto) 3.6 % (0.0-7.0); Hematocrit 35.6 % (41.0-53.0); Hemoglobin 11.9 g/dL (13.5-17.5); Lymphocytes # (auto) 1.9 uL; Lymphocytes % (auto) 35.6 % (10.0-50.0); Mean Corpuscular Hgb Conc. 33.5 g/dL (32.0-36.0); Mean Corpuscular Volume 92.7 fL (80.0-100.0); Monocytes # (auto) 0.6 uL; Monocytes % (auto) 10.9 % (0.0-12.0); Neutrophils # (auto) 2.6 uL; Neutrophils % (auto) 48.5 % (37.0-80.0); Nucleated Red Blood Cells % 0.1 %; Platelet Count (auto) 211 10^3/uL (140-450); Red Blood Cells 3.84 10^6/uL (4.5-5.90); Red Cell Distribution Width 14.1 % (11.8-14.3); White Blood Cell 5.3 10^3/uL (4.4-10.8)
[2017-08-29 07:13] LABS: BUN/Creatinine Ratio 11.7; Calcium 9.2 mg/dL (8.5-10.1); Potassium 4.3 mmol/L (3.5-5.1)
[2017-08-29] MEDS: Boost Glucose Control 8 Ounces PO SCH ×3 (08:00→18:00)
[2017-08-29 09:04] VITALS: BP 132/76
[2017-08-29] MEDS: CARVEDILOL 3.125 MG TAB PO SCH ×2 (09:52→21:30)
[2017-08-29] MEDS: LISINOPRIL 20 MG TAB PO SCH (09:53)
[2017-08-29] MEDS: ENOXAPARIN SOD 40 MG/0.4 ML SYRINGE SC SCH (09:53)
[2017-08-29] MEDS: LEVETIRACETAM 500 MG TAB PO SCH ×2 (09:53→21:31)
[2017-08-29] MEDS: PANTOPRAZOLE 40 MG TAB PO SCH (09:53)
[2017-08-29] MEDS: ASPirin 81 mg TAB PO SCH (09:54)
[2017-08-29 12:48] VITALS: BP 145/81
[2017-08-29] MEDS ORDERED: LORazepam 2MG/ML-1ML VIAL IV PRN (13:45)
[2017-08-29] MEDS ORDERED: TEMAZEPAM 15 MG CAP PO PRN (13:45)
[2017-08-29] MEDS ORDERED: HYDROcodone-ACET 5/325MG TAB PO PRN (13:45)
[2017-08-29] MEDS ORDERED: LORazepam 0.5 MG TAB PO PRN (13:45)
[2017-08-29 17:00] VITALS: BP 135/80
[2017-08-29] MEDS: PHENYTOIN SODIUM 100 MG CAP PO SCH (21:31)
[2017-08-29] MEDS: INSULIN LANTUS (GLARGINE) 1 /0.01ml (100units/ml) SC SCH (21:34)
[2017-08-29] MEDS: ATORVASTATIN 20 MG TAB PO SCH (21:35)
[2017-08-29 22:00] VITALS: BP 115/68
[2017-08-30 05:00] VITALS: BP 122/76
[2017-08-30 05:55] LABS: BUN/Creatinine Ratio 9.1; Calcium 9.1 mg/dL (8.5-10.1); Magnesium 1.9 mg/dL (1.6-2.6); Potassium 4.1 mmol/L (3.5-5.1)
[2017-08-30] MEDS: ACCU-CHEK COMFORT CURVE STRIP VI SCH ×3 (06:21→17:45)
[2017-08-30] MEDS: InsuLIN REG 1unit/0.01ml Soln (100units/ml) SC SCH ×3 (06:21→17:45)
[2017-08-30] MEDS: Boost Glucose Control 8 Ounces PO SCH ×2 (08:00→12:00)
[2017-08-30 09:00] VITALS: BP 119/78
[2017-08-30] MEDS: LEVETIRACETAM 500 MG TAB PO SCH (10:11)
[2017-08-30] MEDS: ASPirin 81 mg TAB PO SCH (10:11)
[2017-08-30] MEDS: ENOXAPARIN SOD 40 MG/0.4 ML SYRINGE SC SCH (10:11)
[2017-08-30] MEDS: PANTOPRAZOLE 40 MG TAB PO SCH (10:11)
[2017-08-30] MEDS ORDERED: LISI-646 PO (10:12)
[2017-08-30] MEDS ORDERED: CAR3125T PO (10:12)
[2017-08-30] MEDS: LISINOPRIL 20 MG TAB PO SCH (10:12)
[2017-08-30] MEDS ORDERED: KEP500T PO (10:12)
[2017-08-30] MEDS: CARVEDILOL 3.125 MG TAB PO SCH (10:12)
[2017-08-30] MEDS ORDERED: ASP81EC PO (10:12)
[2017-08-30] MEDS ORDERED: ATOR20TA50 PO (10:12)
[2017-08-30] MEDS ORDERED: PHE100C PO (10:12)
[2017-08-30] MEDS ORDERED: MAGNESIUM SULFATE 1GM/100ML 100 ML IV ONE (10:15)
[2017-08-30 13:00] VITALS: BP 132/74
[2017-08-30 13:11] VITALS: BP 119/78
[2017-08-30 17:10] VITALS: BP 119/71
== END 2017-08-30 18:15 | disposition home health service (06) | DRG 64 ==
LOC: ER 11:38 → TELE 11:40 → TELE-WESTW 16:53
PROVIDERS: ADMIT Internal Medicine; ATTEND Internal Medicine
PROC: 4A023N7 Measurement of Cardiac Sampling and Pressure, Left Heart, Percutaneous Approach (ICD-10-PCS; principal; 2017-08-23)
PROC: B2111ZZ Fluoroscopy of Multiple Coronary Arteries using Low Osmolar Contrast (ICD-10-PCS; 2017-08-23)
PROC: B2151ZZ Fluoroscopy of Left Heart using Low Osmolar Contrast (ICD-10-PCS; 2017-08-23)
DX: I63.531 Cerebral infarction due to unspecified occlusion or stenosis of right posterior cerebral artery (principal); I21.A1 Myocardial infarction type 2; N17.0 Acute kidney failure with tubular necrosis; G40.101 Localization-related (focal) (partial) symptomatic epilepsy and epileptic syndromes with simple partial seizures, not intractable, with status epilepticus; G81.94 Hemiplegia, unspecified affecting left nondominant side; I13.0 Hypertensive heart and chronic kidney disease with heart failure and stage 1 through stage 4 chronic kidney disease, or unspecified chronic kidney disease; I42.0 Dilated cardiomyopathy; E11.21 Type 2 diabetes mellitus with diabetic nephropathy; E11.22 Type 2 diabetes mellitus with diabetic chronic kidney disease; E78.5 Hyperlipidemia, unspecified; E86.0 Dehydration; F41.9 Anxiety disorder, unspecified; H53.462 Homonymous bilateral field defects, left side; I25.10 Atherosclerotic heart disease of native coronary artery without angina pectoris; N18.9 Chronic kidney disease, unspecified; I50.9 Heart failure, unspecified; K21.9 Gastro-esophageal reflux disease without esophagitis; Z79.899 Other long term (current) drug therapy; Z82.49 Family history of ischemic heart disease and other diseases of the circulatory system; Z80.0 Family history of malignant neoplasm of digestive organs; Z83.3 Family history of diabetes mellitus; Z87.891 Personal history of nicotine dependence; Z79.4 Long term (current) use of insulin
CPT/HCPCS: 36415; 70450; 70498; 70551; 71045; 80048; 80053; 80061; 80185; 80307; 80320; 81001; 82550; 82607; 82746; 82962; 83036; 83735; 83880; 84443; 84484; 85025; 85610; 85652; 85730; 86850; 86900; 86901; 87086; 93005; 93306; 93886; 94761; 95819; 96361; 96372; 96374; 97110; 97116; 97163; 97530; 99152; C9113; J1815; J2250; J7060; Q9967

== ENCOUNTER 2019-04-06 12:48 | Emergency (ER) | payer BC, MEDICAID ==
[~2019-04-06] VITALS: Ht 182.9 cm; Wt 68.0 kg
[~2019-04-06 12:48] MED LIST changes: +ASP81EC PO; +ATOR20TA50 PO; +CAR3125T PO; +CIPR500T4 PO; +CYCL1TAB18 PO; +HYDR-4833 PO; -IBUP800T24 PO; +KEP500T PO; +PHE100C PO; +TAMS0.4C36 PO
[2019-04-06 14:10] VITALS: BP 160/59
[2019-04-06 15:18] LABS: Basophils # (auto) 0.1 uL; Basophils % (auto) 0.3 % (0.0-2.0); Eosinophils # (auto) 0 uL; Hematocrit 35.6 % (41.0-53.0); Hemoglobin 12.1 g/dL (13.5-17.5); Lymphocytes # (auto) 6.5 uL; Lymphocytes % (auto) 33.5 % (10.0-50.0); Mean Corpuscular Hemoglobin 29.2 pg (28.0-32.0); Mean Corpuscular Hgb Conc. 34.1 g/dL (32.0-36.0); Mean Corpuscular Volume 85.5 fL (80.0-100.0); Monocytes # (auto) 0.5 uL; Monocytes % (auto) 2.8 % (0.0-12.0); Neutrophils # (auto) 12.4 uL; Neutrophils % (auto) 63.4 % (37.0-80.0); Nucleated Red Blood Cells % 0.1 %; Platelet Count (auto) 264 10^3/uL (140-450); Red Blood Cells 4.17 10^6/uL (4.5-5.90); Red Cell Distribution Width 15.7 % (11.8-14.3); White Blood Cell 19.6 10^3/uL (4.4-10.8)
[2019-04-06 15:35] LABS: Magnesium 1.6 mg/dL (1.6-2.6)
[2019-04-06 15:37] LABS: INR 1.01 (0.9-1.15); Partial Thromboplastin Time 27.9 sec (23.64-32.05)
[2019-04-06 17:03] LABS: Albumin 2.5 g/dL (3.4-5.0); Calcium 9.8 mg/dL (8.5-10.1); Potassium 4.9 mmol/L (3.5-5.1)
[2019-04-06 17:05] LABS: BUN/Creatinine Ratio 14.8; Bilirubin, Total 0.4 mg/dL (0.2-1.0)
[2019-04-06] MEDS ORDERED: SODIUM CHLORIDE 0.9% 1,000 ML IV ONE ×2 (18:45)
[2019-04-06] MEDS ORDERED: ONDANSETRON HCL 4 MG/2 ML VIAL IV ONE (18:45)
[2019-04-06] MEDS ORDERED: InsuLIN REG 1unit/0.01ml Soln (100units/ml) IV ONE (18:45)
[2019-04-06 21:15] LABS: Urine Bacteria FEW /hpf (None Seen); Urine Blood Negative /uL (Negative); Urine Specific Gravity 1.027 (1.001-1.035); Urine WBC 1 /hpf (0 - 3)
== END 2019-04-06 23:20 | disposition home or self-care (01) ==
LOC: EDBD 12:55 → ER 12:55
DX: E11.65 Type 2 diabetes mellitus with hyperglycemia (principal); K29.70 Gastritis, unspecified, without bleeding; N40.0 Benign prostatic hyperplasia without lower urinary tract symptoms; E78.5 Hyperlipidemia, unspecified; I10 Essential (primary) hypertension; Z79.2 Long term (current) use of antibiotics; Z79.82 Long term (current) use of aspirin; Z79.4 Long term (current) use of insulin
CPT/HCPCS: 36415; 74176; 80053; 81001; 82150; 82962; 83690; 83735; 85025; 85610; 85730; 93005

== ENCOUNTER 2020-03-04 13:43 | Inpatient (IN) | payer BC, MEDICARE, OTHER ==
[~2020-03-04] VITALS: Ht 180.3 cm; Wt 86.2 kg
[~2020-03-04 13:43] MED LIST changes: -ASP81EC PO; +ASPI-394 PO; +CYCL10TA6 PO; -CYCL1TAB18 PO
[2020-03-04] MEDS ORDERED: SODIUM CHLORIDE 0.9% 1,000 ML IV ONE ×2 (14:15→17:00)
[2020-03-04] MEDS ORDERED: InsuLIN REG 1unit/0.01ml Soln (100units/ml) IV ONE ×2 (14:15→16:15)
[2020-03-04 15:18] LABS: Basophils # (auto) 0 10 ^3/uL (0-0.2); Eosinophils # (auto) 0 10 ^3/uL (0-0.8); Hemoglobin 14.1 g/dL (13.5-17.5); Lymphocytes # (auto) 0.6 10 ^3/uL (0.4-5.4); Monocytes # (auto) 0.2 10 ^3/uL (0-1.3); Neutrophils # (auto) 11.3 10 ^3/uL (1.6-8.6); Neutrophils % (auto) 93.6 % (37.0-80.0); Nucleated Red Blood Cells % 0.2 %; White Blood Cell 12.1 10^3/uL (4.4-10.8)
[2020-03-04 15:20] LABS: Basophils % (auto) 0.2 % (0.0-2.0); Hematocrit 46.4 % (41.0-53.0); Lymphocytes % (auto) 4.9 % (10.0-50.0); Mean Corpuscular Hemoglobin 30.5 pg (28.0-32.0); Mean Corpuscular Hgb Conc. 30.3 g/dL (32.0-36.0); Mean Corpuscular Volume 100.9 fL (80.0-100.0); Monocytes % (auto) 1.3 % (0.0-12.0); Platelet Count (auto) 196 10^3/uL (140-450); Red Cell Distribution Width 16.2 % (11.8-14.3)
[2020-03-04 15:32] LABS: Albumin 2.8 g/dL (3.4-5.0); Calcium 10.3 mg/dL (8.5-10.1); Potassium 5.2 mmol/L (3.5-5.1)
[2020-03-04 15:36] LABS: Bilirubin, Total 0.5 mg/dL (0.2-1.0); Total Protein 8.5 g/dL (6.4-8.2)
[2020-03-04 15:51] LABS: INR 1.14 (0.9-1.15); Partial Thromboplastin Time 29.3 sec (23.0-31.2)
[2020-03-04 15:53] LABS: BUN/Creatinine Ratio 27.9; Magnesium 4.3 mg/dL (1.6-2.6)
[2020-03-04] MEDS ORDERED: PIPERACILLIN-TAZOB 3.375GM 100 ML IV ONE (16:15)
[2020-03-04] MEDS ORDERED: FUROSEMIDE 20 MG/2 ML VIAL IV ONE (16:15)
[2020-03-04] MEDS ORDERED: ALBUTEROL SULF 2.5 MG/0.5ML(0.5%) NEB SOLN NEB ONE (16:15)
[2020-03-04] MEDS ORDERED: SODIUM BICARBONATE 8.4% INJ 50ML SYRINGE IV ONE (16:15)
[2020-03-04] MEDS ORDERED: CALCIUM GLUC 4.65meq/50ml D5AE 50 ML IV ONE (16:15)
[2020-03-04] MEDS ORDERED: DEXTROSE (50%) 50ML SYRG IV ONE (16:15)
[2020-03-04] MEDS ORDERED: hydrALAZINE HCL 20 MG/ML VL IV PRN (17:00)
[2020-03-04] MEDS ORDERED: InsuLIN R (HUMAN) 100 UNITS in SODIUM CHL 0.9% 99 ML IV SCH (17:00)
[2020-03-04] MEDS ORDERED: MORPHINE SULF INJ 2 MG/ML SYRINGE 1ML IV PRN (17:00)
[2020-03-04] MEDS ORDERED: NITROGLYCERIN 0.4 MG SL TAB SL PRN (17:00)
[2020-03-04] MEDS ORDERED: DEXTROSE (50%) 50ML SYRG IV PRN (17:00)
[2020-03-04] MEDS ORDERED: PHENYTOIN IV DILANTIN 300 MG in SODIUM CHL 0.9% 50 ML IV ONE (17:30)
[2020-03-04] MEDS ORDERED: ONDANSETRON HCL 4 MG/2 ML VIAL IV PRN (17:30)
[2020-03-04] MEDS: ACCU-CHEK COMFORT CURVE STRIP VI SCH ×5 (17:30→23:41)
[2020-03-04] MEDS ORDERED: AMLO10TA13 PO (17:49)
[2020-03-04] MEDS ORDERED: ATEN50TA PO (17:49)
[2020-03-04] MEDS ORDERED: LISI-285 PO (17:50)
[2020-03-04] MEDS: SODIUM CHLORIDE 0.9% 1,000 ML IV SCH ×3 (20:58→23:06)
[2020-03-04] MEDS ORDERED: SODIUM CHLORIDE 0.9% 1,000 ML IV SCH (21:00)
[2020-03-04 21:03] LABS: Lactic Acid w/Reflex 4.8 mmol/L (0.4-2.0)
[2020-03-04 22:18] LABS: Urine WBC None Seen /hpf (0 - 3)
[2020-03-04 22:29] LABS: Urine Bacteria NONE SEEN /hpf (None Seen); Urine Blood 2+ /uL (Negative)
[2020-03-04] MEDS: SODIUM ZIRCONIUM CYCL 10 GM PAK PO SCH (23:11)
[2020-03-05] MEDS: ACCU-CHEK COMFORT CURVE STRIP VI SCH ×7 (01:30→22:00)
[2020-03-05] MEDS: LORazepam 2MG/ML-1ML VIAL IV PRN (02:23)
[2020-03-05] MEDS: SODIUM CHLORIDE 0.9% 1,000 ML IV SCH (05:12)
[2020-03-05 05:57] LABS: Basophils # (auto) 0 10 ^3/uL (0-0.2); Basophils % (auto) 0.5 % (0.0-2.0); Eosinophils # (auto) 0 10 ^3/uL (0-0.8); Hematocrit 38.3 % (41.0-53.0); Hemoglobin 12.4 g/dL (13.5-17.5); Lymphocytes # (auto) 0.4 10 ^3/uL (0.4-5.4); Lymphocytes % (auto) 6.4 % (10.0-50.0); Mean Corpuscular Hgb Conc. 32.2 g/dL (32.0-36.0); Monocytes # (auto) 0.3 10 ^3/uL (0-1.3); Monocytes % (auto) 4.3 % (0.0-12.0); Neutrophils # (auto) 5.7 10 ^3/uL (1.6-8.6); Neutrophils % (auto) 88.8 % (37.0-80.0); Nucleated Red Blood Cells % 0.5 %; Platelet Count (auto) 159 10^3/uL (140-450); Red Blood Cells 4.12 10^6/uL (4.5-5.90); Red Cell Distribution Width 14.6 % (11.8-14.3); White Blood Cell 6.4 10^3/uL (4.4-10.8)
[2020-03-05] MEDS: SODIUM ZIRCONIUM CYCL 10 GM PAK PO SCH ×5 (06:00→22:00)
[2020-03-05 06:12] LABS: Potassium 3.7 mmol/L (3.5-5.1)
[2020-03-05 06:18] LABS: Albumin 2.2 g/dL (3.4-5.0); Bilirubin, Total 0.3 mg/dL (0.2-1.0); Calcium 9.1 mg/dL (8.5-10.1); Magnesium 3.6 mg/dL (1.6-2.6); Phosphorus 1.9 mg/dL (2.5-4.90); Total Protein 6.7 g/dL (6.4-8.2)
[2020-03-05 06:25] LABS: Cholesterol 165 mg/dL (< 200); HDL Cholesterol 63 mg/dL (40-59); LDL Cholesterol 68 mg/dL (< 100); Triglycerides 127 mg/dL (< 150)
[2020-03-05] MEDS ORDERED: SOD CHL 0.45% 1,000 ML IV SCH (07:45)
[2020-03-05] MEDS: InsuLIN REG 1unit/0.01ml Soln (100units/ml) SC SCH ×4 (08:48→22:00)
[2020-03-05] MEDS: cefTRIAXone 1GM/50ML D5W 50 ML IV SCH (08:48)
[2020-03-05] MEDS: INSULIN LANTUS (GLARGINE) 1 /0.01ml (100units/ml) SC SCH (10:00)
[2020-03-05] MEDS ORDERED: ENOXAPARIN SOD 40 MG/0.4 ML SYRINGE SC SCH (10:00)
[2020-03-05] MEDS: PANTOPRAZOLE 40 MG/10 ML VIAL INJ IV SCH (10:15)
[2020-03-05 12:39] LABS: BUN/Creatinine Ratio 29.4; Calcium 8.9 mg/dL (8.5-10.1); Potassium 4.9 mmol/L (3.5-5.1)
[2020-03-05] MEDS ORDERED: ETOMIDATE (2MG/ML) 20ML VIAL IV ONE ×2 (13:14→14:00)
[2020-03-05] MEDS: D5W 5% 1,000 ML IV SCH (13:15)
[2020-03-05] MEDS ORDERED: MIDAZOLAM DRIP 50 mg/50mL 50 ML IV ONE (13:17)
[2020-03-05] MEDS ORDERED: MIDAZOLAM DRIP 50 mg/50mL 50 ML IV SCH (13:30)
[2020-03-05 14:00] VITALS: BP 135/78
[2020-03-05] MEDS: MIDAZOLAM DRIP 50 mg/50mL 50 ML IV SCH (14:00)
[2020-03-05] MEDS: PHENYTOIN SODIUM 50 MG/ML 2ML VIAL IV SCH ×2 (14:46→22:00)
[2020-03-05] MEDS: FREE WATER NG SCH (17:43)
[2020-03-05 18:33] VITALS: BP 118/77
--- NOTE | 2020-03-05 18:33 | NUR ---
RECEIVED PT ON VENT ([id number]). VENT CONNECTED TO RED OUTLET AND O2 SOURCE ALARMS ARE SET AND AUDIBLE. AMBU BAG AND MASK AT BEDSIDE. NO VENT CHANGES MADE, WILL CONTINUE TO MONITOR.
[2020-03-05] MEDS ORDERED: levETIRAcetam 500 MG/5ML INJ IV ONE (22:22)
[2020-03-05] MEDS ORDERED: VANCOMYCIN PER PHARMACY 0 MG IV SCH (23:30)
[2020-03-06] MEDS ORDERED: VANCOMYCIN 1GM/250ML 250 ML IV ONE
[2020-03-06] MEDS: FREE WATER NG SCH ×4 (00:04→18:32)
[2020-03-06] MEDS: MIDAZOLAM DRIP 50 mg/50mL 50 ML IV SCH ×4 (00:04→22:00)
[2020-03-06 02:11] VITALS: BP 114/62
--- NOTE | 2020-03-06 02:28 | NUR ---
fio2 titrated via vent to 75%, RN at bedside and communicated on o2 change.
[2020-03-06] MEDS: D5W 5% 1,000 ML IV SCH ×2 (02:35→16:41)
--- NOTE | 2020-03-06 04:09 | NUR ---
titrated fio2 via vent to 60% via vent, LUAN Davis at bedside and communicated on o2 change.
[2020-03-06] MEDS: PHENYTOIN SODIUM 50 MG/ML 2ML VIAL IV SCH ×3 (06:00→22:26)
[2020-03-06 06:25] LABS: Basophils # (auto) 0 10 ^3/uL (0-0.2); Basophils % (auto) 0.3 % (0.0-2.0); Eosinophils # (auto) 0 10 ^3/uL (0-0.8); Hemoglobin 10.5 g/dL (13.5-17.5); Lymphocytes # (auto) 0.4 10 ^3/uL (0.4-5.4); Lymphocytes % (auto) 5.1 % (10.0-50.0); Mean Corpuscular Hemoglobin 30.5 pg (28.0-32.0); Mean Corpuscular Hgb Conc. 32.9 g/dL (32.0-36.0); Mean Corpuscular Volume 92.6 fL (80.0-100.0); Monocytes # (auto) 0.3 10 ^3/uL (0-1.3); Monocytes % (auto) 4.6 % (0.0-12.0); Neutrophils # (auto) 6.8 10 ^3/uL (1.6-8.6); Nucleated Red Blood Cells % 0.7 %; Platelet Count (auto) 110 10^3/uL (140-450); Red Blood Cells 3.46 10^6/uL (4.5-5.90); Red Cell Distribution Width 14.8 % (11.8-14.3); White Blood Cell 7.6 10^3/uL (4.4-10.8)
[2020-03-06] MEDS: ACCU-CHEK COMFORT CURVE STRIP VI SCH ×4 (06:39→22:09)
[2020-03-06 06:40] VITALS: BP 105/55
[2020-03-06 06:42] LABS: Albumin 1.7 g/dL (3.4-5.0); Calcium 8.9 mg/dL (8.5-10.1); Magnesium 3.6 mg/dL (1.6-2.6); Potassium 4.7 mmol/L (3.5-5.1)
[2020-03-06] MEDS: InsuLIN REG 1unit/0.01ml Soln (100units/ml) SC SCH ×4 (06:43→22:14)
[2020-03-06 06:49] LABS: Bilirubin, Total 0.4 mg/dL (0.2-1.0)
[2020-03-06] MEDS: SODIUM ZIRCONIUM CYCL 10 GM PAK PO SCH (08:38)
[2020-03-06] MEDS: cefTRIAXone 1GM/50ML D5W 50 ML IV SCH (09:00)
[2020-03-06] MEDS: PANTOPRAZOLE 40 MG/10 ML VIAL INJ IV SCH (11:34)
[2020-03-06] MEDS: AZITHROMYCIN 500MG/ 250ML 250 ML IV SCH (11:35)
[2020-03-06] MEDS: INSULIN LANTUS (GLARGINE) 1 /0.01ml (100units/ml) SC SCH (11:37)
[2020-03-06 14:10] VITALS: BP 121/73
[2020-03-06 18:46] VITALS: BP 107/68
--- NOTE | 2020-03-06 21:08 | NUR ---
RT Transport Note: Patient transported to CT with RN HARIKA. Patient transported to and from procedure on ventilator with previous ordered settings. Patient on property assessment monitor with alarms set and audible, ambu-bag/mask connected to 02 tank. Patient returned to room with no adverse reaction noted. Transport completed without incident.
[2020-03-06] MEDS ORDERED: levETIRAcetam 500 MG/5ML INJ IV ONE (22:40)
[2020-03-06 22:50] VITALS: BP 107/68
[2020-03-07 02:39] VITALS: BP 99/61
[2020-03-07] MEDS: D5W 5% 1,000 ML IV SCH (05:35)
[2020-03-07] MEDS: FREE WATER NG SCH ×4 (05:39→17:07)
[2020-03-07] MEDS: PHENYTOIN SODIUM 50 MG/ML 2ML VIAL IV SCH ×3 (06:11→22:37)
[2020-03-07] MEDS: ACCU-CHEK COMFORT CURVE STRIP VI SCH ×3 (06:11→17:25)
[2020-03-07] MEDS: InsuLIN REG 1unit/0.01ml Soln (100units/ml) SC SCH ×3 (06:12→17:25)
[2020-03-07 06:25] VITALS: BP 94/60
[2020-03-07] MEDS: cefTRIAXone 1GM/50ML D5W 50 ML IV SCH (08:53)
[2020-03-07] MEDS: MIDAZOLAM DRIP 50 mg/50mL 50 ML IV SCH (08:53)
[2020-03-07] MEDS: DexAMETHasone SOD PHOS 10MG/1ML VIAL INJ IV SCH (08:54)
[2020-03-07] MEDS: PANTOPRAZOLE 40 MG/10 ML VIAL INJ IV SCH (08:54)
[2020-03-07] MEDS: AZITHROMYCIN 500MG/ 250ML 250 ML IV SCH (08:54)
[2020-03-07 09:42] LABS: Basophils # (auto) 0 10 ^3/uL (0-0.2); Basophils % (auto) 0.1 % (0.0-2.0); Eosinophils # (auto) 0 10 ^3/uL (0-0.8); Eosinophils % (auto) 0.1 % (0.0-7.0); Hematocrit 30.7 % (41.0-53.0); Hemoglobin 10.2 g/dL (13.5-17.5); Lymphocytes # (auto) 0.4 10 ^3/uL (0.4-5.4); Lymphocytes % (auto) 3.8 % (10.0-50.0); Mean Corpuscular Hgb Conc. 33.3 g/dL (32.0-36.0); Mean Corpuscular Volume 93.1 fL (80.0-100.0); Monocytes # (auto) 0.5 10 ^3/uL (0-1.3); Monocytes % (auto) 4.4 % (0.0-12.0); Neutrophils # (auto) 9.8 10 ^3/uL (1.6-8.6); Neutrophils % (auto) 91.6 % (37.0-80.0); Nucleated Red Blood Cells % 0.5 %; Platelet Count (auto) 104 10^3/uL (140-450); White Blood Cell 10.7 10^3/uL (4.4-10.8)
[2020-03-07] MEDS: INSULIN LANTUS (GLARGINE) 1 /0.01ml (100units/ml) SC SCH (09:55)
[2020-03-07 10:03] LABS: Albumin 1.5 g/dL (3.4-5.0); Potassium 4.4 mmol/L (3.5-5.1)
[2020-03-07 10:27] LABS: BUN/Creatinine Ratio 25.1; Bilirubin, Total 0.4 mg/dL (0.2-1.0); Calcium 8.8 mg/dL (8.5-10.1); Total Protein 5.9 g/dL (6.4-8.2)
[2020-03-07] MEDS: D5W/SOD CHL 0.45% 1,000 ML IV SCH (15:33)
[2020-03-07 15:36] VITALS: BP 110/76
--- NOTE | 2020-03-07 16:41 | NUR ---
1600 03/07/20 - Faxed to [facility] transfer center at [phone] face sheet, order to transfer to [facility] for worsening subdural hematoma, H/P/ labs, meds, transfer summary pending review and bed availability. Contacted by [facility] transfer center search marketing coordinator who requested images on CD, CD via carrier sent to [facility].
[2020-03-07 18:22] VITALS: BP 126/75
[2020-03-07] MEDS ORDERED: PPN PER PHARMACY 0 ML IV SCH (18:45)
[2020-03-07] MEDS: AMINO ACID INFUSION IN D10W 1,000 ML IV NR (20:40)
[2020-03-07 22:29] VITALS: BP 126/75
--- NOTE | 2020-03-07 22:29 | NUR ---
RECEIVED PT ON VENT ([id number]). VENT CONNECTED TO RED OUTLET AND O2 SOURCE ALARMS ARE SET AND AUDIBLE. AMBU BAG AND MASK AT BEDSIDE. NO CHANGES MADE WILL CONTINUE TO MONITOR.
--- NOTE | 2020-03-07 22:29 | NUR ---
AT BEDSIDE FOR ROUTINE VENT CHECK. CURRENT TEMP READS 98.2F. NO CHANGES MADE WILL CONTINUE TO MONITOR.
[2020-03-08] MEDS: InsuLIN REG 1unit/0.01ml Soln (100units/ml) SC SCH ×4 (00:20→18:06)
[2020-03-08] MEDS: SODIUM BICARBONATE 50ML VIAL 50 ML in D5W 5% 1,000 ML IV SCH ×2 (00:29→12:15)
[2020-03-08] MEDS: FREE WATER NG SCH ×4 (01:00→18:09)
[2020-03-08] MEDS: D5W/SOD CHL 0.45% 1,000 ML IV SCH ×2 (01:38→10:55)
[2020-03-08 01:40] VITALS: BP 118/72
--- NOTE | 2020-03-08 01:40 | NUR ---
AT BEDSIDE FOR ROUTINE VENT CHECK. CURRENT TEMP READS 98.4F. NO CHANGES MADE WILL CONTINUE TO MONITOR.
[2020-03-08] MEDS: MIDAZOLAM DRIP 50 mg/50mL 50 ML IV SCH ×2 (01:50→08:15)
[2020-03-08 06:23] LABS: Basophils # (auto) 0 10 ^3/uL (0-0.2); Basophils % (auto) 0.2 % (0.0-2.0); Eosinophils # (auto) 0 10 ^3/uL (0-0.8); Hematocrit 30.6 % (41.0-53.0); Lymphocytes # (auto) 0.3 10 ^3/uL (0.4-5.4); Lymphocytes % (auto) 2.5 % (10.0-50.0); Mean Corpuscular Hemoglobin 30.7 pg (28.0-32.0); Mean Corpuscular Hgb Conc. 32.6 g/dL (32.0-36.0); Mean Corpuscular Volume 94.1 fL (80.0-100.0); Monocytes # (auto) 0.6 10 ^3/uL (0-1.3); Monocytes % (auto) 4.7 % (0.0-12.0); Neutrophils # (auto) 11.7 10 ^3/uL (1.6-8.6); Neutrophils % (auto) 92.6 % (37.0-80.0); Nucleated Red Blood Cells % 0.3 %; Platelet Count (auto) 111 10^3/uL (140-450); Red Blood Cells 3.25 10^6/uL (4.5-5.90); Red Cell Distribution Width 15.8 % (11.8-14.3); White Blood Cell 12.7 10^3/uL (4.4-10.8)
[2020-03-08 06:30] VITALS: BP 124/74
[2020-03-08 06:37] LABS: Albumin 1.4 g/dL (3.4-5.0); Calcium 8.9 mg/dL (8.5-10.1); Magnesium 3.6 mg/dL (1.6-2.6); Potassium 4.3 mmol/L (3.5-5.1)
[2020-03-08 06:43] LABS: Bilirubin, Total 0.2 mg/dL (0.2-1.0); Phosphorus 2.5 mg/dL (2.5-4.90); Total Protein 6.1 g/dL (6.4-8.2)
[2020-03-08] MEDS: PHENYTOIN SODIUM 50 MG/ML 2ML VIAL IV SCH ×3 (06:50→23:07)
[2020-03-08] MEDS: ACCU-CHEK COMFORT CURVE STRIP VI SCH ×4 (07:06→18:02)
[2020-03-08] MEDS: cefTRIAXone 1GM/50ML D5W 50 ML IV SCH (09:09)
[2020-03-08] MEDS: DexAMETHasone SOD PHOS 10MG/1ML VIAL INJ IV SCH (09:10)
[2020-03-08] MEDS: INSULIN LANTUS (GLARGINE) 1 /0.01ml (100units/ml) SC SCH ×2 (09:10→11:30)
[2020-03-08] MEDS: AZITHROMYCIN 500MG/ 250ML 250 ML IV SCH (09:10)
[2020-03-08] MEDS: PANTOPRAZOLE 40 MG/10 ML VIAL INJ IV SCH (09:10)
--- NOTE | 2020-03-08 10:02 | NUR ---
0930 03/08/20 - Contacted by [facility] transfer center flow coordinator who stated they are declining this patient due to at capacity and due to COVID 19 surge. Contacted by [facility] transfer center flow coordinator Araceli who stated they have no beds but will place patient on waiting list. Contacted by [facility] transfer center flow coordinator who stated they are only accepting maharaj, trauma, or stroke patients.
--- NOTE | 2020-03-08 10:43 | NUR ---
Nutrition Consult TPN Est energy needs 8661-7117 kcal (20-25 kcal/kg BW 79.4kg) Est protein needs 64-79g (0.8-1g/kg BW 79.4kg) Will monitor and reassess prn. Addendum: 03/08/20 at [address] Amended: Links added.
[2020-03-08] MEDS ORDERED: levoFLOXacin 500MG 100 ML IV ONE (11:30)
[2020-03-08] MEDS ORDERED: TPN PER PHARMACY 0 ML IV SCH (12:30)
--- NOTE | 2020-03-08 14:26 | NUR ---
1426 03/08/20 - Faxed to [facility] at [phone] face sheet, order for transfer to [facility] for worsening subdural hematoma, H/P, labs, meds,current progress notes. Pending review and bed availability.
--- NOTE | 2020-03-08 14:40 | NUR ---
PT TRANSPORTED TO CT AND BACK TO ER 14 WITHOUT INCIDENT. PT ON TRANSPORT VENTILATOR AND DYE RANGE OPERATOR. ETT REMAINS IN SAME POSITION. BS ARE CLEAR TO AUSCULTATION. BILATERAL CHEST RISE. PT PLACED BACK AN VENTILATOR SAME SETTINGS. WILL CONTINUE TO MONITOR PT.
--- NOTE | 2020-03-08 15:38 | NUR ---
Pt currently intubated and unable to be assessed.
[2020-03-08 19:10] VITALS: BP 131/79
[2020-03-08] MEDS ORDERED: TPN PER PHARMACY IV NR ×8 (20:00)
[2020-03-08] MEDS: AMINO ACID INFUSION IN D10W 1,000 ML IV NR (21:05)
[2020-03-08 22:55] VITALS: BP 129/75
[2020-03-09] MEDS ORDERED: SODIUM BICARBONATE 8.4% INJ 50ML SYRINGE ONE (00:05)
[2020-03-09] MEDS: InsuLIN REG 1unit/0.01ml Soln (100units/ml) SC SCH ×4 (00:28→18:55)
[2020-03-09] MEDS: MIDAZOLAM DRIP 50 mg/50mL 50 ML IV SCH ×3 (00:30→20:30)
[2020-03-09] MEDS: FREE WATER NG SCH ×4 (00:56→18:50)
[2020-03-09] MEDS: ACCU-CHEK COMFORT CURVE STRIP VI SCH ×4 (00:56→18:50)
[2020-03-09 02:40] VITALS: BP 135/70
[2020-03-09] MEDS: PHENYTOIN SODIUM 50 MG/ML 2ML VIAL IV SCH ×3 (06:00→22:45)
[2020-03-09 07:32] VITALS: BP 128/69
[2020-03-09 07:37] LABS: Hematocrit 30.2 % (41.0-53.0); Hemoglobin 9.9 g/dL (13.5-17.5); Mean Corpuscular Hemoglobin 30.1 pg (28.0-32.0); Mean Corpuscular Hgb Conc. 32.7 g/dL (32.0-36.0); Mean Corpuscular Volume 91.8 fL (80.0-100.0); Platelet Count (auto) 137 10^3/uL (140-450); Red Blood Cells 3.29 10^6/uL (4.5-5.90); Red Cell Distribution Width 15.3 % (11.8-14.3); White Blood Cell 16.9 10^3/uL (4.4-10.8)
[2020-03-09 08:05] LABS: INR 1.29 (0.9-1.15); Partial Thromboplastin Time 41.6 sec (23.0-31.2)
[2020-03-09 08:07] LABS: Chloride 125 mmol/L (98-107); Magnesium 3.4 mg/dL (1.6-2.6); Potassium 3.9 mmol/L (3.5-5.1); Sodium 151 mmol/L (136-145)
[2020-03-09 08:20] LABS: Alanine Aminotransferase 17 U/L (16-61); Albumin 1.4 g/dL (3.4-5.0); Alkaline Phosphatase 193 U/L (45-117); Anion Gap 6 (5-15); Aspartate Aminotransferase 41 U/L (15-37); BUN/Creatinine Ratio 27.1; Bilirubin, Direct 0.1 mg/dL (0-0.2); Bilirubin, Total 0.2 mg/dL (0.2-1.0); Calcium 9.2 mg/dL (8.5-10.1); Carbon Dioxide 20 mmol/L (21-32); GFR African American 27 mL/min; GFR Non-African American 22 mL/min; Glucose 169 mg/dL (74-106); Phosphorus 2.1 mg/dL (2.5-4.90); Total Protein 6.2 g/dL (6.4-8.2)
[2020-03-09 08:25] LABS: CRP High Sensitivity > 19.0 mg/dL (< 0.3)
[2020-03-09 08:28] LABS: Blood Urea Nitrogen 81 mg/dL (7-18)
[2020-03-09 08:42] LABS: Basophils % (manual) 0 (0.0-2.0); Blast Cells 0; Eosinophils % (manual) 0 (0-7); Promyelocytes % 0; Reactive Lymphocytes 0
--- NOTE | 2020-03-09 08:53 | NUR ---
0830 03/09/20 - Contacted by [facility] transfer center coordinator Kosta who stated patient has been declined, there is nothing they can do to add to patient's care, clinically inappropriate.
[2020-03-09] MEDS ORDERED: POTASSIUM PHOSPHATE 26.4 MEQ in SODIUM CHL 0.9% 100 ML IV ONE (09:30)
[2020-03-09] MEDS: INSULIN LANTUS (GLARGINE) 1 /0.01ml (100units/ml) SC SCH (10:00)
[2020-03-09 10:04] LABS: Band Neutrophils % (manual) 11; Lymphocytes % (manual) 4 (10.0-50.0); Metamyelocytes % 5; Monocytes % (manual) 5 (0-12); Myelocytes % 1
[2020-03-09] MEDS ORDERED: AMINO ACID INFUSION IN D10W 1,000 ML IV NR (11:15)
[2020-03-09] MEDS: PANTOPRAZOLE 40 MG/10 ML VIAL INJ IV SCH (12:24)
[2020-03-09] MEDS: levoFLOXacin 250MG 50 ML IV SCH (12:24)
[2020-03-09] MEDS: DexAMETHasone SOD PHOS 10MG/1ML VIAL INJ IV SCH (12:30)
[2020-03-09] MEDS: D5W 5% 1,000 ML IV SCH ×2 (14:00→20:00)
[2020-03-09 15:51] LABS: Creatinine, Urine 71 mg/dL (30.0-125.0); Sodium Urine 42 mmol/L (40-220)
[2020-03-09 15:52] LABS: Protein, Urine 143.1 mg/dL (0.0-11.9)
[2020-03-09 18:34] VITALS: BP 109/71
[2020-03-09] MEDS ORDERED: TPN PER PHARMACY IV NR ×9 (20:00)
[2020-03-10] MEDS: FREE WATER NG SCH ×4 (00:29→17:25)
[2020-03-10 03:17] VITALS: BP 124/73
[2020-03-10] MEDS: D5W 5% 1,000 ML IV SCH (04:00)
[2020-03-10] MEDS: MIDAZOLAM DRIP 50 mg/50mL 50 ML IV SCH ×2 (04:00→15:13)
[2020-03-10] MEDS: ACCU-CHEK COMFORT CURVE STRIP VI SCH ×4 (05:27→17:24)
[2020-03-10] MEDS: InsuLIN REG 1unit/0.01ml Soln (100units/ml) SC SCH ×4 (05:28→18:44)
[2020-03-10] MEDS: PHENYTOIN SODIUM 50 MG/ML 2ML VIAL IV SCH ×3 (05:32→21:37)
[2020-03-10 06:02] LABS: Hematocrit 27.5 % (41.0-53.0); Hemoglobin 9.1 g/dL (13.5-17.5); Mean Corpuscular Hemoglobin 30.3 pg (28.0-32.0); Mean Corpuscular Volume 91.7 fL (80.0-100.0); Platelet Count (auto) 167 10^3/uL (140-450); Red Cell Distribution Width 15.3 % (11.8-14.3)
[2020-03-10 06:20] VITALS: BP 126/75
[2020-03-10 06:23] LABS: Chloride 120 mmol/L (98-107); Potassium 4.3 mmol/L (3.5-5.1); Sodium 145 mmol/L (136-145)
[2020-03-10 06:39] LABS: Alanine Aminotransferase 17 U/L (16-61); Albumin 1.3 g/dL (3.4-5.0); Alkaline Phosphatase 161 U/L (45-117); Anion Gap 7 (5-15); Aspartate Aminotransferase 38 U/L (15-37); BUN/Creatinine Ratio 24.6; Bilirubin, Total 0.3 mg/dL (0.2-1.0); Blood Urea Nitrogen 72 mg/dL (7-18); Calcium 8.9 mg/dL (8.5-10.1); Carbon Dioxide 18 mmol/L (21-32); GFR African American 27 mL/min; GFR Non-African American 23 mL/min; Glucose 306 mg/dL (74-106); Magnesium 2.8 mg/dL (1.6-2.6); Phosphorus 2.8 mg/dL (2.5-4.90); Total Protein 6.1 g/dL (6.4-8.2)
[2020-03-10 06:46] LABS: CRP High Sensitivity > 19 mg/dL (< 0.3)
[2020-03-10 06:48] LABS: Basophils % (manual) 0 (0.0-2.0); Blast Cells 0; Eosinophils % (manual) 0 (0-7); Reactive Lymphocytes 0
[2020-03-10 08:02] LABS: Band Neutrophils % (manual) 1; Lymphocytes % (manual) 5 (10.0-50.0); Metamyelocytes % 1; Monocytes % (manual) 1 (0-12); Myelocytes % 1; Promyelocytes % 1
[2020-03-10] MEDS: DexAMETHasone SOD PHOS 10MG/1ML VIAL INJ IV SCH (09:20)
[2020-03-10] MEDS: levoFLOXacin 250MG 50 ML IV SCH (09:21)
[2020-03-10] MEDS: PANTOPRAZOLE 40 MG/10 ML VIAL INJ IV SCH (09:21)
[2020-03-10] MEDS: INSULIN LANTUS (GLARGINE) 1 /0.01ml (100units/ml) SC SCH (10:00)
--- NOTE | 2020-03-10 12:50 | NUR ---
WOUND CARE NOTE: NOTED PATIENT TO BE INTUBATED IN THE ER. BEDSIDE NURSE UNAVAILABLE AT THIS TIME. WILL HAVE WHEEL ALIGNMENT TECHNICIAN BRING HOSPITAL BED DOWN FOR PATIENT, HE IS RESTING ON GURNEY. ON PHYSICAL ASSESSMENT, WOUND TO SACRUM NOTED SINCE 03/05/20. UNABLE TO ASSESS AT THIS TIME. WILL ATTEMPT TO SEE AT LATER TIME. SKIN/WOUND CARE PLAN IMPLEMENTED. RECOMMEND: FREQUENT TURN SCHEDULE Q 2 HOURS, PRN CONDITION PERMITS, WITH PRESSURE REDISTRIBUTION USING PILLOWS/WEDGES, BID/PRN APPLICATION WITH ZGUARD, OPTIFOAM GENTLE SACRAL DRESSING APPLIED TO SACRUM; ICU LOW AIRLOSS BED, WHEN ONE IS AVAILABLE; DIETARY CONSULT FOR INTUBATION STATUS, SKIN/WOUND CARE PLAN, CONTINUED MONITORING BY WOUND CARE TEAM.
[2020-03-10 13:59] VITALS: BP 139/79
[2020-03-10] MEDS: SOD CHL 0.45% 1,000 ML IV SCH (14:29)
--- NOTE | 2020-03-10 14:34 | NUR ---
Nutrition Followup Notes Pt wt is 79.4 kg Pt is in ER, intubated, sedated per MD note but sedation medication not noted in medications tab. Per notes pt is stable with TPN @ 57 ml/hr providing 930 kcals, 55g protein and 710 NPCs. PN support meets 47-59% of est energy needs and 69-86% of est protein needs. Pt is NPO with no diet order. Est energy needs 7184-2580 kcal (20-25 kcal/kg BW 79.4kg) Est protein needs 64-79g (0.8-1g/kg BW 79.4kg) Will monitor and reassess prn. LABS: BUN 72 H, CREAT 2.93 H, GFR 23 L, GLUC 296 H, ALB 1.3 L GI: Pt had no BM today per RN doc. BS: No score reported PES: 1) Inadequate oral intake r/t current medical condition aeb pt is int and sedated, NPO 2) Altered nutrition related labs r/t current and chronic medical conditions aeb pt with elevated RFTs, hyperglycemia, hypoalb Comments Will continue to monitor PO status, skin status, pertinent labs and weight trends. Will f/u in 2-3 days 1) Continue to advance TPN to meet >75% of needs 2) Advance diet as medically feasible 3) Refer pt to OPD on DC 4) Continue current plan of care
[2020-03-10 18:46] VITALS: BP 142/75
[2020-03-10] MEDS: TPN PER PHARMACY IV NR ×8 (21:00)
[2020-03-10 22:06] VITALS: BP 194/92
[2020-03-11] MEDS: FREE WATER NG SCH ×2 (00:19→05:39)
[2020-03-11] MEDS: ACCU-CHEK COMFORT CURVE STRIP VI SCH ×3 (00:22→13:00)
[2020-03-11] MEDS: InsuLIN REG 1unit/0.01ml Soln (100units/ml) SC SCH ×3 (00:24→13:30)
[2020-03-11] MEDS: MIDAZOLAM DRIP 50 mg/50mL 50 ML IV SCH ×5 (00:30→15:19)
[2020-03-11 01:53] VITALS: BP 114/60
[2020-03-11] MEDS: SOD CHL 0.45% 1,000 ML IV SCH ×2 (02:18→18:00)
[2020-03-11 05:39] LABS: Basophils # (auto) 0.1 10 ^3/uL (0-0.2); Basophils % (auto) 0.5 % (0.0-2.0); Eosinophils # (auto) 0 10 ^3/uL (0-0.8); Eosinophils % (auto) 0.1 % (0.0-7.0); Hematocrit 27.1 % (41.0-53.0); Hemoglobin 8.9 g/dL (13.5-17.5); Lymphocytes # (auto) 0.3 10 ^3/uL (0.4-5.4); Lymphocytes % (auto) 2.2 % (10.0-50.0); Mean Corpuscular Hemoglobin 30.1 pg (28.0-32.0); Mean Corpuscular Hgb Conc. 32.9 g/dL (32.0-36.0); Mean Corpuscular Volume 91.3 fL (80.0-100.0); Monocytes # (auto) 0.7 10 ^3/uL (0-1.3); Monocytes % (auto) 4.4 % (0.0-12.0); Neutrophils # (auto) 13.7 10 ^3/uL (1.6-8.6); Neutrophils % (auto) 92.8 % (37.0-80.0); Platelet Count (auto) 210 10^3/uL (140-450); Red Blood Cells 2.97 10^6/uL (4.5-5.90); Red Cell Distribution Width 15.4 % (11.8-14.3); White Blood Cell 14.8 10^3/uL (4.4-10.8)
[2020-03-11] MEDS: PHENYTOIN SODIUM 50 MG/ML 2ML VIAL IV SCH ×2 (05:39→22:00)
[2020-03-11 05:51] LABS: Albumin 1.2 g/dL (3.4-5.0); Anion Gap 8 (5-15); Blood Urea Nitrogen 63 mg/dL (7-18); Calcium 8.6 mg/dL (8.5-10.1); Carbon Dioxide 17 mmol/L (21-32); Chloride 116 mmol/L (98-107); Glucose 323 mg/dL (74-106); Magnesium 2.6 mg/dL (1.6-2.6); Potassium 4.4 mmol/L (3.5-5.1); Sodium 141 mmol/L (136-145)
[2020-03-11 06:00] LABS: Alanine Aminotransferase 24 U/L (16-61); Alkaline Phosphatase 201 U/L (45-117); Aspartate Aminotransferase 48 U/L (15-37); BUN/Creatinine Ratio 23.5; Bilirubin, Total 0.3 mg/dL (0.2-1.0); GFR African American 30 mL/min; GFR Non-African American 25 mL/min; Phosphorus 2.5 mg/dL (2.5-4.90); Total Protein 6.1 g/dL (6.4-8.2)
[2020-03-11 06:23] LABS: CRP High Sensitivity > 19 mg/dL (< 0.3)
[2020-03-11] MEDS: DexAMETHasone SOD PHOS 10MG/1ML VIAL INJ IV SCH (10:00)
[2020-03-11] MEDS: PANTOPRAZOLE 40 MG/10 ML VIAL INJ IV SCH (10:00)
[2020-03-11] MEDS ORDERED: ASPirin-EC 81 mg tab PO SCH (10:00)
[2020-03-11] MEDS ORDERED: HEPARIN SODIUM (PORCINE) 5000 UNITS/ML 1ML VIAL SC SCH (10:00)
[2020-03-11] MEDS: levoFLOXacin 250MG 50 ML IV SCH (11:00)
[2020-03-11] MEDS: INSULIN LANTUS (GLARGINE) 1 /0.01ml (100units/ml) SC SCH (11:00)
[2020-03-11 12:09] VITALS: BP 153/76
[2020-03-11 14:50] VITALS: BP 133/67
--- NOTE | 2020-03-11 16:40 | NUR ---
WOUND CARE NOTE: IN TO ASSESS SKIN AT THIS TIME. PATIENT IS RESTING ON HOSPITAL BED. HE REMAINS INTUBATED, NON RESPONSIVE. PATIENT IS NOTED TO HAVE DARK DUSKY, PURPLE BILATERAL FOREFEET. SKIN INTACT, COOL TO THE TOUCH, EDEMA NOTED TO THE AREA. LEFT OPEN TO AIR. PATIENT TURNED TO THE LEFT SIDE. HE HAS A LARGE DTI TO THE SACRUM THAT IS EVOLVING OPEN TO PARTIAL THICKNESS. WOUND IS DARK PURPLE, OPEN WOUND BED RANGES FROM PINK TO LIGHT RED TO PURPLE. THERE HAS BEEN LIGHT SEROUS DRAINAGE NOTED. DOCUMENTATION OF WOUND TO SACRUM NOTED IN PHYSICAL ASSESSMENT DATING BACK TO 03/05/20. NO OTHER SKIN INTEGRITY ISSUES NOTED. WOUND PHOTOS TAKEN AT THIS TIME FOR REFERENCE. RECOMMEND: AIR BED; FREQUENT Q 2 HOUR SIDE TO SIDE POSITIONING, AVOIDING SUPINE TO PREVENT FURTHER SKIN DAMAGE; BID/PRN APPLICATION WITH ZGUARD, OPTIFOAM GENTLE SACRAL DRESSING, AVOID MASSAGING PURPLE SKIN AREAS; DIETARY CONSULT; SKIN/WOUND CARE PLAN, CONTINUED MONITORING BY WOUND CARE TEAM. Addendum: 03/11/20 at 1810 by Kenia Tyson RN Amended: Links added.
[2020-03-11] MEDS: TPN PER PHARMACY IV NR ×8 (19:57)
[2020-03-11] MEDS ORDERED: TPN PER PHARMACY IV NR ×8 (20:00)
[2020-03-11 20:22] VITALS: BP 160/82
[2020-03-11] MEDS: ENOXAPARIN SOD 100 MG/1 ML SYRINGE SC SCH (22:00)
[2020-03-12] MEDS: InsuLIN REG 1unit/0.01ml Soln (100units/ml) SC SCH ×5 (00:30→23:48)
[2020-03-12] MEDS: ACCU-CHEK COMFORT CURVE STRIP VI SCH ×5 (00:30→23:47)
[2020-03-12 01:19] VITALS: BP 159/90
[2020-03-12] MEDS: MIDAZOLAM DRIP 50 mg/50mL 50 ML IV SCH ×2 (02:39→05:16)
[2020-03-12] MEDS: SOD CHL 0.45% 1,000 ML IV SCH (05:15)
[2020-03-12] MEDS: FREE WATER NG SCH ×3 (05:20→11:57)
[2020-03-12] MEDS: PHENYTOIN SODIUM 50 MG/ML 2ML VIAL IV SCH ×3 (05:22→21:37)
[2020-03-12 06:15] VITALS: BP 145/76
[2020-03-12] MEDS: PANTOPRAZOLE 40 MG/10 ML VIAL INJ IV SCH (09:09)
[2020-03-12] MEDS: levoFLOXacin 250MG 50 ML IV SCH (09:09)
[2020-03-12] MEDS: DexAMETHasone SOD PHOS 10MG/1ML VIAL INJ IV SCH (09:09)
[2020-03-12] MEDS: INSULIN LANTUS (GLARGINE) 1 /0.01ml (100units/ml) SC SCH (09:17)
[2020-03-12 09:55] LABS: Basophils # (auto) 0 10 ^3/uL (0-0.2); Basophils % (auto) 0.1 % (0.0-2.0); Eosinophils # (auto) 0 10 ^3/uL (0-0.8); Eosinophils % (auto) 0.2 % (0.0-7.0); Hematocrit 25.9 % (41.0-53.0); Hemoglobin 8.5 g/dL (13.5-17.5); Lymphocytes # (auto) 0.5 10 ^3/uL (0.4-5.4); Lymphocytes % (auto) 2.7 % (10.0-50.0); Mean Corpuscular Hemoglobin 29.8 pg (28.0-32.0); Mean Corpuscular Hgb Conc. 32.7 g/dL (32.0-36.0); Mean Corpuscular Volume 91.2 fL (80.0-100.0); Monocytes # (auto) 0.7 10 ^3/uL (0-1.3); Monocytes % (auto) 3.9 % (0.0-12.0); Neutrophils # (auto) 16.6 10 ^3/uL (1.6-8.6); Neutrophils % (auto) 93.1 % (37.0-80.0); Platelet Count (auto) 246 10^3/uL (140-450); Red Blood Cells 2.84 10^6/uL (4.5-5.90); Red Cell Distribution Width 15.5 % (11.8-14.3); White Blood Cell 17.8 10^3/uL (4.4-10.8)
[2020-03-12] MEDS: ENOXAPARIN SOD 100 MG/1 ML SYRINGE SC SCH ×2 (10:05→21:31)
[2020-03-12 10:48] VITALS: BP 156/73
[2020-03-12 11:23] LABS: Alanine Aminotransferase 54 U/L (16-61); Albumin 1.2 g/dL (3.4-5.0); Alkaline Phosphatase 297 U/L (45-117); Anion Gap 14 (5-15); Aspartate Aminotransferase 125 U/L (15-37); BUN/Creatinine Ratio 22.2; Bilirubin, Total 0.4 mg/dL (0.2-1.0); Blood Urea Nitrogen 55 mg/dL (7-18); Calcium 8.6 mg/dL (8.5-10.1); Carbon Dioxide 11 mmol/L (21-32); Chloride 117 mmol/L (98-107); GFR African American 33 mL/min; GFR Non-African American 27 mL/min; Glucose 209 mg/dL (74-106); Magnesium 2.5 mg/dL (1.6-2.6); Potassium 4.2 mmol/L (3.5-5.1); Sodium 142 mmol/L (136-145); Total Protein 6.2 g/dL (6.4-8.2)
[2020-03-12 12:03] LABS: CRP High Sensitivity > 19.0 mg/dL (< 0.3)
--- NOTE | 2020-03-12 14:11 | NUR ---
Nutrition Followup Notes Wt:86.1 kg Pt is in ER, intubated, on CPAP trial today. pt is currently NPO on TPN @ 59 ml/hr providing 910 kcals, 50 g protein and 710 NPCs. PN support meets 47-59% of est energy needs and 69-86% of est protein needs. Pt is NPO with no diet order. Est energy needs 4500-1526 kcal (20-25 kcal/kg BW 79.4kg) , Est protein needs 64-79g (0.8-1g/kg BW 79.4kg). Will monitor and reassess prn. LABS: BUN 63 H CREAT 2.68 H GLU 323 H ALB 1.2 L GI: Pt had no BM today per RN doc. BS: 10 high risk PES: 1) Inadequate oral intake r/t current medical condition aeb pt is int and sedated, NPO 2) Altered nutrition related labs r/t current and chronic medical conditions aeb pt with elevated RFTs, hyperglycemia, hypoalb Comments: Will continue to monitor NPO status, skin status, pertinent labs and weight trends. Will f/u in 2-3 days 1) Continue to advance TPN to meet >75% of needs 2) Advance diet as medically feasible 3) Refer pt to OPD on DC 4) Continue current plan of care
[2020-03-12] MEDS: hydrALAZINE HCL 20 MG/ML VL IV PRN (15:04)
[2020-03-12] MEDS: METOPROLOL TARTRATE 25 MG TAB PO SCH (18:15)
[2020-03-12] MEDS: amLODIPine BESYLATE 5 MG TAB PO SCH (18:15)
[2020-03-12] MEDS: METOPROLOL TARTRATE 1MG/1ML-5ML VIAL IV PRN (19:04)
[2020-03-12] MEDS ORDERED: TPN PER PHARMACY IV NR ×8 (20:00)
[2020-03-13] MEDS: ACCU-CHEK COMFORT CURVE STRIP VI SCH ×3 (03:23→18:05)
[2020-03-13] MEDS: DEXTROSE (50%) 50ML SYRG IV SCH ×2 (03:24→12:06)
[2020-03-13] MEDS: InsuLIN REG 1unit/0.01ml Soln (100units/ml) SC SCH ×3 (05:18→18:08)
[2020-03-13] MEDS: PHENYTOIN SODIUM 50 MG/ML 2ML VIAL IV SCH ×3 (06:00→21:35)
[2020-03-13 06:50] LABS: Hematocrit 27.2 % (41.0-53.0); Hemoglobin 8.8 g/dL (13.5-17.5); Mean Corpuscular Hemoglobin 29.5 pg (28.0-32.0); Mean Corpuscular Hgb Conc. 32.4 g/dL (32.0-36.0); Mean Corpuscular Volume 91.1 fL (80.0-100.0); Platelet Count (auto) 314 10^3/uL (140-450); Red Blood Cells 2.98 10^6/uL (4.5-5.90); Red Cell Distribution Width 15.5 % (11.8-14.3)
[2020-03-13 07:00] LABS: Basophils % (manual) 0 (0.0-2.0); Blast Cells 0; Eosinophils % (manual) 0 (0-7); Metamyelocytes % 0; Myelocytes % 0; Promyelocytes % 0; Reactive Lymphocytes 0
[2020-03-13 07:07] LABS: Albumin 1.2 g/dL (3.4-5.0); Anion Gap 9 (5-15); Blood Urea Nitrogen 51 mg/dL (7-18); Calcium 8.4 mg/dL (8.5-10.1); Carbon Dioxide 15 mmol/L (21-32); Chloride 117 mmol/L (98-107); Glucose 109 mg/dL (74-106); Magnesium 2.6 mg/dL (1.6-2.6); Potassium 4.5 mmol/L (3.5-5.1); Sodium 141 mmol/L (136-145)
[2020-03-13 07:18] LABS: Alanine Aminotransferase 93 U/L (16-61); Alkaline Phosphatase 440 U/L (45-117); Aspartate Aminotransferase 235 U/L (15-37); BUN/Creatinine Ratio 22.6; Bilirubin, Total 0.8 mg/dL (0.2-1.0); GFR African American 37 mL/min; GFR Non-African American 30 mL/min; Phosphorus 3.5 mg/dL (2.5-4.90); Pre Albumin 9.2 mg/dL (20.0-40.0); Total Protein 6.3 g/dL (6.4-8.2); Triglycerides 101 mg/dL (< 150)
[2020-03-13 08:17] LABS: CRP High Sensitivity > 19.0 mg/dL (< 0.3)
[2020-03-13] MEDS: SOD CHL 0.45% 1,000 ML IV SCH ×2 (09:30→20:51)
[2020-03-13] MEDS: PANTOPRAZOLE 40 MG/10 ML VIAL INJ IV SCH (10:00)
[2020-03-13] MEDS: DexAMETHasone SOD PHOS 10MG/1ML VIAL INJ IV SCH (10:00)
[2020-03-13] MEDS: METOPROLOL TARTRATE 25 MG TAB PO SCH ×2 (10:00→21:04)
[2020-03-13] MEDS: amLODIPine BESYLATE 5 MG TAB PO SCH (10:00)
[2020-03-13] MEDS: levoFLOXacin 250MG 50 ML IV SCH (11:08)
[2020-03-13] MEDS: ENOXAPARIN SOD 80 MG/0.8ML SYRINGE SC SCH ×2 (11:08→21:02)
[2020-03-13] MEDS: MIDAZOLAM DRIP 50 mg/50mL 50 ML IV SCH ×2 (12:00→22:00)
[2020-03-13] MEDS: INSULIN LANTUS (GLARGINE) 1 /0.01ml (100units/ml) SC SCH (12:09)
[2020-03-13 13:22] LABS: Band Neutrophils % (manual) 6; Lymphocytes % (manual) 4 (10.0-50.0); Monocytes % (manual) 1 (0-12)
--- NOTE | 2020-03-13 17:18 | NUR ---
SWALLOW EVALUATED IN E.D. PATIENT VERY WEAK AND UNABLE TO FOLLOW ONE STEP COMMANDS. TRIAL OF PUREE CAUSE IMMEDIATE DROOLING. UNABLE TO INITIATE SWALLOW. RECOMMEND NPO AT THIS TIME. UNSAFE FOR PO INTAKE. NURSING NOTIFIED.
[2020-03-13] MEDS ORDERED: TPN PER PHARMACY IV NR ×5 (20:00)
[2020-03-14] MEDS: ACCU-CHEK COMFORT CURVE STRIP VI SCH ×4 (00:27→18:06)
[2020-03-14] MEDS: InsuLIN REG 1unit/0.01ml Soln (100units/ml) SC SCH ×4 (00:31→18:00)
[2020-03-14] MEDS: hydrALAZINE HCL 20 MG/ML VL IV PRN (01:00)
[2020-03-14] MEDS: METOPROLOL TARTRATE 1MG/1ML-5ML VIAL IV PRN (03:37)
[2020-03-14] MEDS: PHENYTOIN SODIUM 50 MG/ML 2ML VIAL IV SCH ×3 (06:00→22:00)
[2020-03-14] MEDS: MIDAZOLAM DRIP 50 mg/50mL 50 ML IV SCH ×2 (08:00→18:00)
[2020-03-14 08:09] LABS: Basophils # (auto) 0.2 10 ^3/uL (0-0.2); Basophils % (auto) 0.9 % (0.0-2.0); Eosinophils # (auto) 0 10 ^3/uL (0-0.8); Hematocrit 26.6 % (41.0-53.0); Hemoglobin 8.7 g/dL (13.5-17.5); Lymphocytes # (auto) 0.3 10 ^3/uL (0.4-5.4); Lymphocytes % (auto) 1.5 % (10.0-50.0); Mean Corpuscular Hemoglobin 29.9 pg (28.0-32.0); Mean Corpuscular Hgb Conc. 32.7 g/dL (32.0-36.0); Mean Corpuscular Volume 91.6 fL (80.0-100.0); Monocytes # (auto) 0.6 10 ^3/uL (0-1.3); Monocytes % (auto) 2.8 % (0.0-12.0); Neutrophils % (auto) 94.8 % (37.0-80.0); Nucleated Red Blood Cells % 0.1 %; Platelet Count (auto) 390 10^3/uL (140-450); Red Cell Distribution Width 15.7 % (11.8-14.3); White Blood Cell 22.1 10^3/uL (4.4-10.8)
[2020-03-14 08:11] LABS: Calcium 8.8 mg/dL (8.5-10.1); Magnesium 2.4 mg/dL (1.6-2.6)
[2020-03-14 08:42] LABS: Alanine Aminotransferase 62 U/L (16-61); Albumin 1.2 g/dL (3.4-5.0); Alkaline Phosphatase 392 U/L (45-117); Anion Gap 11 (5-15); Aspartate Aminotransferase 80 U/L (15-37); BUN/Creatinine Ratio 23.3; Bilirubin, Total 0.6 mg/dL (0.2-1.0); Blood Urea Nitrogen 50 mg/dL (7-18); Carbon Dioxide 14 mmol/L (21-32); Chloride 113 mmol/L (98-107); GFR African American 39 mL/min; GFR Non-African American 32 mL/min; Glucose 153 mg/dL (74-106); Phosphorus 4.3 mg/dL (2.5-4.90); Potassium 4.6 mmol/L (3.5-5.1); Sodium 138 mmol/L (136-145)
[2020-03-14 09:02] LABS: CRP High Sensitivity > 19.0 mg/dL (< 0.3)
[2020-03-14] MEDS: METOPROLOL TARTRATE 25 MG TAB PO SCH ×2 (10:00→22:00)
[2020-03-14] MEDS: INSULIN LANTUS (GLARGINE) 1 /0.01ml (100units/ml) SC SCH (10:00)
[2020-03-14] MEDS: amLODIPine BESYLATE 5 MG TAB PO SCH (10:00)
[2020-03-14] MEDS: PANTOPRAZOLE 40 MG/10 ML VIAL INJ IV SCH (10:29)
[2020-03-14] MEDS: ENOXAPARIN SOD 80 MG/0.8ML SYRINGE SC SCH ×2 (10:30→22:15)
[2020-03-14] MEDS: LORazepam 2MG/ML-1ML VIAL IV PRN (10:30)
[2020-03-14] MEDS: DexAMETHasone SOD PHOS 10MG/1ML VIAL INJ IV SCH (10:30)
[2020-03-14] MEDS: SOD CHL 0.45% 1,000 ML IV SCH ×2 (10:35→23:55)
[2020-03-14] MEDS: levoFLOXacin 250MG 50 ML IV SCH (11:20)
[2020-03-14] MEDS ORDERED: FUROSEMIDE 40 MG/4 ML VIAL IV ONE (11:45)
[2020-03-14] MEDS ORDERED: FUROSEMIDE 40 MG/4 ML VIAL ONE (11:53)
[2020-03-14] MEDS: TPN PER PHARMACY IV NR ×7 (19:54)
[2020-03-15] MEDS: InsuLIN REG 1unit/0.01ml Soln (100units/ml) SC SCH ×4 (00:55→18:25)
[2020-03-15] MEDS: DEXTROSE (50%) 50ML SYRG IV SCH ×2 (01:03→07:03)
[2020-03-15] MEDS: MIDAZOLAM DRIP 50 mg/50mL 50 ML IV SCH ×2 (04:00→14:00)
[2020-03-15] MEDS: PHENYTOIN SODIUM 50 MG/ML 2ML VIAL IV SCH ×2 (06:00→14:00)
[2020-03-15] MEDS: ACCU-CHEK COMFORT CURVE STRIP VI SCH ×4 (07:03→18:21)
[2020-03-15] MEDS: amLODIPine BESYLATE 5 MG TAB PO SCH (10:00)
[2020-03-15] MEDS: METOPROLOL TARTRATE 25 MG TAB PO SCH ×2 (10:00→22:55)
[2020-03-15] MEDS: ENOXAPARIN SOD 80 MG/0.8ML SYRINGE SC SCH ×2 (10:04→22:55)
[2020-03-15] MEDS: PANTOPRAZOLE 40 MG/10 ML VIAL INJ IV SCH (10:04)
[2020-03-15] MEDS: DexAMETHasone SOD PHOS 10MG/1ML VIAL INJ IV SCH (10:15)
[2020-03-15] MEDS: levoFLOXacin 250MG 50 ML IV SCH (10:15)
[2020-03-15 11:21] LABS: Basophils # (auto) 0.2 10 ^3/uL (0-0.2); Basophils % (auto) 1.2 % (0.0-2.0); Eosinophils # (auto) 0 10 ^3/uL (0-0.8); Hematocrit 26.8 % (41.0-53.0); Hemoglobin 8.8 g/dL (13.5-17.5); Lymphocytes # (auto) 0.3 10 ^3/uL (0.4-5.4); Lymphocytes % (auto) 1.5 % (10.0-50.0); Mean Corpuscular Hemoglobin 29.9 pg (28.0-32.0); Mean Corpuscular Hgb Conc. 32.7 g/dL (32.0-36.0); Mean Corpuscular Volume 91.2 fL (80.0-100.0); Monocytes # (auto) 0.6 10 ^3/uL (0-1.3); Monocytes % (auto) 3.6 % (0.0-12.0); Neutrophils # (auto) 16.4 10 ^3/uL (1.6-8.6); Neutrophils % (auto) 93.7 % (37.0-80.0); Platelet Count (auto) 434 10^3/uL (140-450); Red Blood Cells 2.94 10^6/uL (4.5-5.90); Red Cell Distribution Width 15.7 % (11.8-14.3); White Blood Cell 17.5 10^3/uL (4.4-10.8)
[2020-03-15 11:38] LABS: Chloride 115 mmol/L (98-107); Sodium 140 mmol/L (136-145)
[2020-03-15] MEDS: INSULIN LANTUS (GLARGINE) 1 /0.01ml (100units/ml) SC SCH (11:46)
[2020-03-15 12:08] LABS: Alanine Aminotransferase 49 U/L (16-61); Albumin 1.1 g/dL (3.4-5.0); Alkaline Phosphatase 325 U/L (45-117); Anion Gap 10 (5-15); Aspartate Aminotransferase 61 U/L (15-37); BUN/Creatinine Ratio 27.6; Bilirubin, Total 0.6 mg/dL (0.2-1.0); Blood Urea Nitrogen 50 mg/dL (7-18); Calcium 8.2 mg/dL (8.5-10.1); Carbon Dioxide 15 mmol/L (21-32); GFR African American 47 mL/min; GFR Non-African American 39 mL/min; Glucose 78 mg/dL (74-106); Magnesium 2.1 mg/dL (1.6-2.6); Phosphorus 3.8 mg/dL (2.5-4.90); Total Protein 6.5 g/dL (6.4-8.2)
[2020-03-15 12:20] LABS: CRP High Sensitivity > 19.0 mg/dL (< 0.3)
--- NOTE | 2020-03-15 15:50 | NUR ---
Nutrition Followup Notes Wt:86.1 kg Pt is in ER, extubated, awake and able to answer questions per notes. Pt is currently NPO on TPN @ 62 ml/hr providing 995 kcals, 50 g protein and 795 NPCs. PN support meets 50-63% of est energy needs and 69-86% of est protein needs. Pt is NPO with no diet order. Est energy needs 2266-1866 kcal (20-25 kcal/kg BW 79.4kg) , Est protein needs 64-79g (0.8-1g/kg BW 79.4kg). Will monitor and reassess prn. LABS: BUN 50 H CREAT 2.15 H GLU 54 L ALB 1.2 L GI: Pt had no BM today per RN doc. BS: 10 high risk. Refer to wound assessment report for further details PES: 1) Inadequate oral intake r/t current medical condition aeb pt is int and sedated, NPO 2) Altered nutrition related labs r/t current and chronic medical conditions aeb pt with elevated RFTs, hyperglycemia, hypoalb Comments: Will continue to monitor NPO status, skin status, pertinent labs and weight trends. Will f/u in 2-3 days 1) Continue to advance TPN to meet >75% of needs 2) Advance diet as medically feasible 3) Refer pt to OPD on DC 4) Continue current plan of care
[2020-03-15] MEDS: SOD CHL 0.45% 1,000 ML IV SCH (18:32)
[2020-03-15] MEDS: TPN PER PHARMACY IV NR ×15 (19:44→22:33)
[2020-03-15 20:46] VITALS: BP 142/52
[2020-03-15] MEDS: PHENYTOIN SODIUM 50 MG/ML 5ML INJ VIAL IV SCH (22:59)
[2020-03-15 23:23] VITALS: BP 151/76
[2020-03-16] MEDS: InsuLIN REG 1unit/0.01ml Soln (100units/ml) SC SCH ×4 (01:05→18:06)
[2020-03-16] MEDS: ACCU-CHEK COMFORT CURVE STRIP VI SCH ×4 (01:06→17:57)
[2020-03-16] MEDS: SOD CHL 0.45% 1,000 ML IV SCH ×2 (03:00→16:24)
[2020-03-16 05:57] LABS: Potassium 4.1 mmol/L (3.5-5.1)
[2020-03-16 06:08] LABS: BUN/Creatinine Ratio 25.9; Bilirubin, Total 0.8 mg/dL (0.2-1.0); Calcium 8.6 mg/dL (8.5-10.1); Phosphorus 3.4 mg/dL (2.5-4.90)
[2020-03-16] MEDS: PHENYTOIN SODIUM 50 MG/ML 5ML INJ VIAL IV SCH ×3 (07:09→22:00)
[2020-03-16 09:25] VITALS: BP 130/82
[2020-03-16] MEDS ORDERED: HALOPERIDOL LACTATE 5 MG/ML INJ VIAL IM PRN (09:30)
[2020-03-16] MEDS: METOPROLOL TARTRATE 25 MG TAB PO SCH ×2 (10:00→23:41)
[2020-03-16] MEDS: amLODIPine BESYLATE 5 MG TAB PO SCH (10:00)
[2020-03-16] MEDS: PANTOPRAZOLE 40 MG/10 ML VIAL INJ IV SCH (10:36)
[2020-03-16] MEDS: DexAMETHasone SOD PHOS 10MG/1ML VIAL INJ IV SCH (10:36)
[2020-03-16] MEDS: levoFLOXacin 250MG 50 ML IV SCH (10:36)
[2020-03-16] MEDS: ENOXAPARIN SOD 80 MG/0.8ML SYRINGE SC SCH ×2 (10:37→23:41)
[2020-03-16] MEDS: INSULIN LANTUS (GLARGINE) 1 /0.01ml (100units/ml) SC SCH (10:46)
[2020-03-16 13:17] VITALS: BP 146/67
[2020-03-16] MEDS: TPN PER PHARMACY IV NR ×8 (19:44)
[2020-03-16] MEDS ORDERED: TPN PER PHARMACY IV NR ×11 (20:00)
[2020-03-16 20:03] VITALS: BP 128/78
[2020-03-16 23:22] VITALS: BP 142/84
[2020-03-17] MEDS: ACCU-CHEK COMFORT CURVE STRIP VI SCH ×4 (00:47→16:58)
[2020-03-17] MEDS: InsuLIN REG 1unit/0.01ml Soln (100units/ml) SC SCH ×4 (00:51→16:55)
[2020-03-17] MEDS: SOD CHL 0.45% 1,000 ML IV SCH ×2 (05:49→18:05)
[2020-03-17 06:06] VITALS: BP 146/83
[2020-03-17 06:21] LABS: Potassium 3.8 mmol/L (3.5-5.1)
[2020-03-17 06:30] LABS: Albumin 1.1 g/dL (3.4-5.0); BUN/Creatinine Ratio 29.9; Bilirubin, Total 0.6 mg/dL (0.2-1.0); Calcium 8.3 mg/dL (8.5-10.1); Phosphorus 3.1 mg/dL (2.5-4.90); Total Protein 6.3 g/dL (6.4-8.2)
[2020-03-17] MEDS: levoFLOXacin 250MG 50 ML IV SCH (08:28)
[2020-03-17] MEDS: METOPROLOL TARTRATE 25 MG TAB PO SCH ×2 (08:28→21:10)
[2020-03-17] MEDS: DexAMETHasone SOD PHOS 10MG/1ML VIAL INJ IV SCH (08:28)
[2020-03-17] MEDS: PANTOPRAZOLE 40 MG/10 ML VIAL INJ IV SCH (08:28)
[2020-03-17] MEDS: PHENYTOIN SODIUM 50 MG/ML 5ML INJ VIAL IV SCH ×3 (08:28→21:01)
[2020-03-17] MEDS: amLODIPine BESYLATE 5 MG TAB PO SCH (08:29)
[2020-03-17] MEDS: INSULIN LANTUS (GLARGINE) 1 /0.01ml (100units/ml) SC SCH (08:29)
[2020-03-17] MEDS: ENOXAPARIN SOD 80 MG/0.8ML SYRINGE SC SCH ×2 (08:30→21:01)
[2020-03-17 11:28] VITALS: BP 148/73
--- NOTE | 2020-03-17 12:12 | NUR ---
Nutrition Followup Notes Wt:86.1 kg Pt is in ER, extubated, awake and able to answer questions per notes. Pt is currently NPO on TPN @ 63 ml/hr providing 1305 kcals, 60 g protein and 1065 NPCs. PN support meets 66-82% of est energy needs and 76-94% of est protein needs. Pt is NPO with no diet order. Est energy needs 9120-0856 kcal (20-25 kcal/kg BW 79.4kg) , Est protein needs 64-79g (0.8-1g/kg BW 79.4kg). Will monitor and reassess prn. LABS: Na 135L, CO2 16L, BUN 41H, Creat 1.37H, GLUC 132H, Ca 8.3L, Alb 1.1L GI: Pt had no BM today per RN doc. BS: 10 high risk. Refer to wound assessment report for further details PES: 1) Inadequate oral intake r/t current medical condition aeb pt is int and sedated, NPO 2) Altered nutrition related labs r/t current and chronic medical conditions aeb pt with elevated RFTs, hyperglycemia, hypoalb Comments: Will continue to monitor NPO status, skin status, pertinent labs and weight trends. Will f/u in 2-3 days 1) Continue to advance TPN to meet >75% of needs 2) Advance diet as medically feasible 3) Refer pt to OPD on DC 4) Continue current plan of care
--- NOTE | 2020-03-17 13:54 | NUR ---
Assessment Patient is a 74-year-old male who is on high flow oxygen. Assessment was completed with patient daughter So . Prior to admission patient reside with family and functioned independently. Prior to admission patient did not have medical equipment. Advised So there is a social service consult for hospice evaluation. Informed So Per CATINA Waters patient health plan is only contracted with [facility] and [facility]. Informed So order will be faxed to [facility] [place]. Per So she would like to make room arrangements for patient before patient discharge and ask if patient can be discharged Saturday or Saturday. Informed So I will follow up with MD in regards of discharge day. Placed call to , Dr. Hernandez on regards of patient daughters concerned to be able to clean patient room and rearrange furniture for arrival DME. Per MD that will be okay. Informed So she has the right to participate in all discharge planning. Patient does not have an advance directive. So has been provided with information for an advanced directive. So verbalized understanding and agrees to discharge plan. Faxed clinical information to [facility] . Per Zoya with [facility] order has been received and patient has been accepted they will be delivering patient DME on Saturday morning and will arrange transportation. Zoya Mac will provide ETA to ER Nurse on day of discharge. Addendum: 03/17/20 at 1359 by LYDIA DUKES Amended: Links added.
[2020-03-17 18:14] VITALS: BP 140/64
[2020-03-17] MEDS ORDERED: TPN PER PHARMACY IV NR ×9 (20:00)
[2020-03-17 23:51] VITALS: BP 112/60
--- NOTE | 2020-03-18 04:30 | NUR ---
Respiratory note: RN REQUESTED TO HAVE PT DEEP SUCTIONED, EXPLAINED IT IS A SHARED TASK. RN STATED SHE DID NOT KNOW HOW TO DEEP SUCTION. INSTRUCTED RN TO GET A NTS SUCTION KIT AND RT WOULD EDUCATE HER ON THE PROCEDURE. RT NEEDED FOR EMERGENT INTUBATION, RN TOLD TO WAIT UNTIL RT WAS FREE. WHEN AVAILABLE, ARRIVED AT BEDSIDE. RN ALREADY SUCTIONED PT, PT HR NOTED AT 30BPM. SPO2 79-80%. RN AT BEDSIDE WITH PATIENT, STATED THIS HAS HAPPENED BEFORE, WILL CONTINUE TO MONITOR.
[2020-03-18] MEDS: SOD CHL 0.45% 1,000 ML IV SCH (04:54)
[2020-03-18] MEDS: PHENYTOIN SODIUM 50 MG/ML 5ML INJ VIAL IV SCH (05:27)
[2020-03-18] MEDS: InsuLIN REG 1unit/0.01ml Soln (100units/ml) SC SCH ×2 (05:27)
[2020-03-18] MEDS: ACCU-CHEK COMFORT CURVE STRIP VI SCH ×2 (05:28)
[2020-03-18 05:55] LABS: Bilirubin, Total 0.6 mg/dL (0.2-1.0); Calcium 8.2 mg/dL (8.5-10.1); Magnesium 1.9 mg/dL (1.6-2.6); Phosphorus 4.1 mg/dL (2.5-4.90); Total Protein 6.5 g/dL (6.4-8.2)
[2020-03-18 05:59] LABS: Albumin 1.1 g/dL (3.4-5.0)
[2020-03-18 06:08] VITALS: BP 127/60
[2020-03-18] MEDS ORDERED: SODIUM CHLORIDE 0.9% 1,000 ML IV SCH (09:30)
[2020-03-18] MEDS ORDERED: ONDANSETRON HCL 4 MG/2 ML VIAL IV PRN (09:45)
[2020-03-18] MEDS ORDERED: LORazepam 2MG/ML-1ML VIAL IV PRN (09:45)
[2020-03-18] MEDS ORDERED: MORPHINE SULF INJ 2 MG/ML SYRINGE 1ML IV PRN (09:45)
[2020-03-18 10:00] VITALS: BP 70/20
[2020-03-18] MEDS: METOPROLOL TARTRATE 25 MG TAB PO SCH (10:00)
[2020-03-18] MEDS: levoFLOXacin 250MG 50 ML IV SCH (10:00)
[2020-03-18] MEDS: PANTOPRAZOLE 40 MG/10 ML VIAL INJ IV SCH (10:00)
[2020-03-18] MEDS: INSULIN LANTUS (GLARGINE) 1 /0.01ml (100units/ml) SC SCH (10:00)
[2020-03-18] MEDS: amLODIPine BESYLATE 5 MG TAB PO SCH (10:00)
[2020-03-18] MEDS: ENOXAPARIN SOD 80 MG/0.8ML SYRINGE SC SCH (10:00)
[2020-03-18] MEDS: DexAMETHasone SOD PHOS 10MG/1ML VIAL INJ IV SCH (11:48)
== END 2020-03-18 10:27 | DRG 870 ==
LOC: ER 13:43 → EDBD 13:43 → OVERFLOW 13:44 → TELE-WESTW 03-05 12:45 → TELE 03-05 12:49
PROVIDERS: ADMIT Family Medicine; ATTEND Internal Medicine
PROC: 02HV33Z Insertion of Infusion Device into Superior Vena Cava, Percutaneous Approach (ICD-10-PCS; principal; 2020-03-05)
PROC: 5A1955Z Respiratory Ventilation, Greater than 96 Consecutive Hours (ICD-10-PCS; 2020-03-05)
PROC: 0BH17EZ Insertion of Endotracheal Airway into Trachea, Via Natural or Artificial Opening (ICD-10-PCS; 2020-03-05)
DX: A41.89 Other specified sepsis (principal); U07.1 COVID-19; N17.1 Acute kidney failure with acute cortical necrosis; E11.10 Type 2 diabetes mellitus with ketoacidosis without coma; J12.89 Other viral pneumonia; J96.01 Acute respiratory failure with hypoxia; I62.01 Nontraumatic acute subdural hemorrhage; G92 Toxic encephalopathy; G93.6 Cerebral edema; N17.0 Acute kidney failure with tubular necrosis; I82.623 Acute embolism and thrombosis of deep veins of upper extremity, bilateral; E11.52 Type 2 diabetes mellitus with diabetic peripheral angiopathy with gangrene; I13.0 Hypertensive heart and chronic kidney disease with heart failure and stage 1 through stage 4 chronic kidney disease, or unspecified chronic kidney disease; E87.0 Hyperosmolality and hypernatremia; E87.1 Hypo-osmolality and hyponatremia; C18.9 Malignant neoplasm of colon, unspecified; E44.0 Moderate protein-calorie malnutrition; J98.11 Atelectasis; E87.5 Hyperkalemia; N18.9 Chronic kidney disease, unspecified; I50.9 Heart failure, unspecified; I46.9 Cardiac arrest, cause unspecified; D63.1 Anemia in chronic kidney disease; E11.22 Type 2 diabetes mellitus with diabetic chronic kidney disease; E78.5 Hyperlipidemia, unspecified; I67.2 Cerebral atherosclerosis; J32.0 Chronic maxillary sinusitis; K21.9 Gastro-esophageal reflux disease without esophagitis; N28.1 Cyst of kidney, acquired; N32.3 Diverticulum of bladder; N32.89 Other specified disorders of bladder; N40.0 Benign prostatic hyperplasia without lower urinary tract symptoms; G40.909 Epilepsy, unspecified, not intractable, without status epilepticus; Z88.1 Allergy status to other antibiotic agents; Z88.6 Allergy status to analgesic agent; Z88.5 Allergy status to narcotic agent; Z88.8 Allergy status to other drugs, medicaments and biological substances; Z82.49 Family history of ischemic heart disease and other diseases of the circulatory system; Z83.3 Family history of diabetes mellitus; Z80.0 Family history of malignant neoplasm of digestive organs; Z80.8 Family history of malignant neoplasm of other organs or systems; Z86.718 Personal history of other venous thrombosis and embolism; Z79.01 Long term (current) use of anticoagulants; Z79.4 Long term (current) use of insulin; Z79.82 Long term (current) use of aspirin; Z79.899 Other long term (current) drug therapy; Z85.46 Personal history of malignant neoplasm of prostate; Z87.891 Personal history of nicotine dependence; Z66 Do not resuscitate
CPT/HCPCS: 36415; 36600; 51702; 70450; 71045; 76775; 80048; 80053; 80061; 80076; 80185; 80320; 81001; 82010; 82040; 82570; 82728; 82805; 82962; 83036; 83605; 83735; 83880; 83930; 84100; 84132; 84156; 84300; 84478; 85007; 85025; 85027; 85379; 85610; 85730; 86141; 87040; 87070; 87077; 87186; 87205; 87426; 92610; 93926; 93970; 94003; 96361; 96374; C9113; G0378; J0610; J0696; J1100; J1815; J1956; J2250; J2405; J2543; J7060